=== PATIENT | male | born 1955 | race Caucasian/White ===

== ENCOUNTER 2018-02-27 19:33 | Inpatient (IN) | payer OTHER ==
[2018-02-27 19:58] LABS: AADO2 Arterial 297.4 mmHg (7.0-24.0); ADD MAN DIFF? NO; Allen Test ACCEPTAB; Arterial Base Excess -3.7 mmol/L (-3.0-3); Arterial Blood Gas Oxygen Sat 97.8 mmHG (95.0-98.0); Arterial COHb 0.3 % (0.0-3.0); Arterial Fraction of Oxyhgb 97.3 % (93.0-99.0); Arterial HCO3 19.6 mmol/L (22.0-26.0); Arterial MetHb 0.2 % (0.0-1.5); Arterial Total Hemglobin 9.1 g/dl (12.0-18.0); Arterial pCO2 28.9 mmhg (35-45); MODE TRACH COLLAR; Site Left Radial
[2018-02-27 20:00] LABS: BASOPHILS % 0.2 % (0.0-2.0); EOSINOPHILS # 0.6 10^3/ul (0.0-0.5); EOSINOPHILS % 6.6 % (0.0-7.0); HEMATOCRIT 25.1 % (42.0-52.0); HEMOGLOBIN 8.1 g/dl (14.0-18.0); LYMPHOCYTES # 1.2 10^3/ul (0.8-2.9); LYMPHOCYTES % 13.9 % (15.0-51.0); MEAN CORPUSCULAR HEMOGLOBIN 31.5 pg (29.0-33.0); MEAN CORPUSCULAR HGB CONC 32.3 g/dl (32.0-37.0); MEAN CORPUSCULAR VOLUME 97.7 fl (82.0-101.0); MEAN PLATELET VOLUME 9.7 fl (7.4-10.4); MONOCYTE # 0.6 10^3/ul (0.3-0.9); MONOCYTES % 7.2 % (0.0-11.0); NEUTROPHIL # 6.2 10^3/ul (1.6-7.5); NEUTROPHILS % 71.5 % (39.0-77.0); PLATELET COUNT 655 10^3/UL (140-415); RED BLOOD COUNT 2.57 10^6/ul (4.70-6.10); RED CELL DISTRIBUTION WIDTH 13.1 % (11.5-14.5)
[2018-02-27 20:00] LABS: WHITE BLOOD COUNT 8.7 10^3/ul (4.8-10.8)
[2018-02-27] MEDS: SOD CHLORIDE 0.9% 500 ML IV (20:07)
[2018-02-27 20:21] LABS: ANION GAP 12 (8-16); BLOOD UREA NITROGEN 52 mg/dl (7-20); CALCIUM 8.1 mg/dl (8.4-10.2); CARBON DIOXIDE 21 mmol/L (21-31); CHLORIDE 110 mmol/L (97-110); GLUCOSE 165 mg/dl (70-220); POTASSIUM 4.7 mmol/L (3.5-5.1); SODIUM 138 mmol/L (135-144)
[2018-02-27 20:33] LABS: B-TYPE NATRIURETIC PEPTIDE 4510 PG/ML (0-125); TROPONIN-I < 0.012 ng/ml (0.000-0.120)
[2018-02-28] MEDS: FUROSEMIDE 40 MG INJ IV (01:02)
[2018-02-28] MEDS ORDERED: NACL 0.9% 3 ML SYG IV (01:30)
[2018-02-28] MEDS ORDERED: ONDANSETRON 4 MG INJ IV (01:30)
[2018-02-28] MEDS ORDERED: ACETAMINOPHEN 325 MG TAB PO (01:30)
[2018-02-28 02:11] LABS: D-DIMER 7180.48 ng/ml (<460)
[2018-02-28 02:27] LABS: HEMOGLOBIN A1C 6.4 % (0-5.9)
[2018-02-28 02:31] LABS: OSMOLALITY 305 mOsm/kg (280-295)
[2018-02-28] MEDS ORDERED: DEXTROSE 50% 50 ML SYRINGE IV (03:00)
[2018-02-28] MEDS ORDERED: GLUCOSE GEL 15 GRAM TUBE PO ×2 (03:00)
[2018-02-28] MEDS ORDERED: GLUCOSE GEL 15 GRAM TUBE BUCCAL (03:00)
[2018-02-28] MEDS ORDERED: GLUCAGON 1 MG INJ IM (03:00)
[2018-02-28] MEDS ORDERED: PENDING SANTYL ORDER FOR WOUND CARE XX (03:30)
[2018-02-28 04:33] LABS: ERYTHROCYTE SEDIMENTATION RATE 110 mm/Hr (0-20)
[2018-02-28] MEDS: INSULIN ASPART [NOVOLOG] 3 ML PEN SC ×5 (05:00→20:46)
[2018-02-28 06:27] LABS: IRON 33 ug/dl (35-150)
[2018-02-28 06:33] LABS: LACTIC ACID 0.7 mmol/L (0.5-2.0)
[2018-02-28 06:36] LABS: % IRON SATURATION 16 % SAT (22-52); TOTAL IRON BINDING CAPACITY 208 ug/dl (241-421)
[2018-02-28 06:45] LABS: CHOL/HDL RATIO 3.5 RATIO; HDL CHOLESTEROL 23 mg/dl (30-78); LDL CHOLESTEROL,CALCULATED 35 mg/dl; TRIGLYCERIDES 122 mg/dl (0-149)
[2018-02-28 06:45] LABS: CHOLESTEROL 82 mg/dl (100-200)
[2018-02-28] MEDS ORDERED: INSULIN ASPART [NOVOLOG] 3 ML PEN SC (08:00)
[2018-02-28] MEDS ORDERED: FAMOTIDINE 20 MG TAB PO (09:00)
[2018-02-28] MEDS ORDERED: ASPIRIN 81 MG TAB PO (09:00)
[2018-02-28] MEDS ORDERED: MINOXIDIL 2.5 MG TAB PO (09:00)
[2018-02-28] MEDS ORDERED: CARVEDILOL 12.5 MG PO (09:00)
[2018-02-28] MEDS: traZODone 50 MG TAB PO ×3 (09:35→20:42)
[2018-02-28] MEDS: MINOXIDIL 2.5 MG TAB GTB ×2 (09:35→20:42)
[2018-02-28] MEDS: ASPIRIN 81 MG TAB GTB (09:36)
[2018-02-28] MEDS: FAMOTIDINE 20 MG TAB GTB (09:36)
[2018-02-28] MEDS: NIFEdipine (XL) 60 MG TAB PO (09:36)
[2018-02-28] MEDS: HEPARIN 5,000 UNIT/0.5 ML VIAL SC ×2 (09:38→20:48)
[2018-02-28 12:01] LABS: LACTIC ACID 0.6 mmol/L (0.5-2.0)
[2018-02-28 14:03] LABS: LACTIC ACID 0.6 mmol/L (0.5-2.0)
[2018-02-28 19:10] LABS: TROPONIN-I < 0.012 ng/ml (0.000-0.120)
[2018-02-28] MEDS: ATORVASTATIN 20 MG TAB PO (20:42)
[2018-02-28] MEDS: TAMSULOSIN (SR) 0.4 MG CAP PO (20:42)
[2018-03-01] MEDS: INSULIN ASPART [NOVOLOG] 3 ML PEN SC ×6 (01:00→21:19)
[2018-03-01 01:56] LABS: TROPONIN-I < 0.012 ng/ml (0.000-0.120)
[2018-03-01] MEDS ORDERED: ACCU-CHEK XX (02:00)
[2018-03-01 02:53] LABS: ADD UMIC YES; UR ASCORBIC ACID NEGATIVE (NEGATIVE); UR BACTERIA FEW /HPF (NONE SEEN); UR BILIRUBIN (Dip) NEGATIVE (NEGATIVE); UR BLOOD (Dip) 1+ mg/dL (NEGATIVE); UR CLARITY SLIGHTLY CLOUDY (CLEAR); UR COLOR YELLOW (YELLOW); UR GLUCOSE (Dip) NEGATIVE (NEGATIVE); UR KETONES (Dip) NEGATIVE (NEGATIVE); UR LEUKOCYTE ESTERASE (Dip) TRACE Leu/ul (NEGATIVE); UR NITRITE (Dip) NEGATIVE (NEGATIVE); UR RBC 6 /HPF (0-5); UR SPECIFIC GRAVITY (Dip) 1.013 (1.003-1.030); UR TOTAL PROTEIN (Dip) 1+ mg/dl (NEGATIVE); UR UROBILINOGEN (Dip) NEGATIVE (NEGATIVE); UR WBC 3 /HPF (0-5)
[2018-03-01 03:29] LABS: SODIUM,URINE RANDOM 88 mmol/L (30-90)
[2018-03-01 03:34] LABS: PROTEIN/CREAT RATIO 0.96 RATIO
[2018-03-01 03:37] LABS: OSMOLALITY,URINE 456 mOsm/kg (250-1200)
[2018-03-01 05:18] LABS: AADO2 Arterial 162.9 mmHg (7.0-24.0); Allen Test ACCEPTAB; Arterial Base Excess -1.8 mmol/L (-3.0-3); Arterial Blood Gas Oxygen Sat 96.3 mmHG (95.0-98.0); Arterial COHb 0.3 % (0.0-3.0); Arterial Fraction of Oxyhgb 95.8 % (93.0-99.0); Arterial HCO3 22.2 mmol/L (22.0-26.0); Arterial MetHb 0.2 % (0.0-1.5); Arterial Total Hemglobin 10.5 g/dl (12.0-18.0); Arterial pCO2 34.9 mmhg (35-45); MODE TRACH COLLAR; Site Right Radial
[2018-03-01 05:39] LABS: ADD MAN DIFF? NO
[2018-03-01 05:42] LABS: BASOPHILS % 0.4 % (0.0-2.0); EOSINOPHILS # 0.5 10^3/ul (0.0-0.5); EOSINOPHILS % 6.4 % (0.0-7.0); HEMATOCRIT 26.6 % (42.0-52.0); HEMOGLOBIN 8.5 g/dl (14.0-18.0); LYMPHOCYTES # 1.3 10^3/ul (0.8-2.9); LYMPHOCYTES % 16.3 % (15.0-51.0); MEAN CORPUSCULAR HEMOGLOBIN 31.4 pg (29.0-33.0); MEAN CORPUSCULAR VOLUME 98.2 fl (82.0-101.0); MEAN PLATELET VOLUME 9.5 fl (7.4-10.4); MONOCYTE # 0.6 10^3/ul (0.3-0.9); MONOCYTES % 7.8 % (0.0-11.0); NEUTROPHIL # 5.5 10^3/ul (1.6-7.5); NEUTROPHILS % 68.6 % (39.0-77.0); PLATELET COUNT 676 10^3/UL (140-415); RED BLOOD COUNT 2.71 10^6/ul (4.70-6.10); RED CELL DISTRIBUTION WIDTH 13.2 % (11.5-14.5)
[2018-03-01 06:03] LABS: ALANINE AMINOTRANSFERASE 45 IU/L (13-69); ALBUMIN 2.3 g/dl (3.3-4.9); ALBUMIN/GLOBULIN RATIO 0.62; ALKALINE PHOSPHATASE 91 IU/L (42-121); ANION GAP 13 (8-16); ASPARTATE AMINO TRANSFERASE 44 IU/L (15-46); BILIRUBIN,INDIRECT 0.1 mg/dl (0-1.1); BILIRUBIN,TOTAL 0.1 mg/dl (0.2-1.3); BLOOD UREA NITROGEN 51 mg/dl (7-20); CALCIUM 8.6 mg/dl (8.4-10.2); CARBON DIOXIDE 23 mmol/L (21-31); CHLORIDE 111 mmol/L (97-110); CREATININE 2.59 mg/dl (0.61-1.24); GLUCOSE 157 mg/dl (70-220); MAGNESIUM 2.3 mg/dl (1.7-2.5); SODIUM 142 mmol/L (135-144)
[2018-03-01 06:11] LABS: POTASSIUM 5.1 mmol/L (3.5-5.1)
[2018-03-01 06:15] LABS: TROPONIN-I < 0.012 ng/ml (0.000-0.120)
[2018-03-01] MEDS: MINOXIDIL 2.5 MG TAB GTB ×2 (09:32→20:53)
[2018-03-01] MEDS: NIFEdipine (XL) 60 MG TAB PO (09:32)
[2018-03-01] MEDS: ASPIRIN 81 MG TAB GTB (09:32)
[2018-03-01] MEDS: FAMOTIDINE 20 MG TAB GTB (09:32)
[2018-03-01] MEDS: traZODone 50 MG TAB PO ×3 (09:32→20:52)
[2018-03-01] MEDS: HEPARIN 5,000 UNIT/0.5 ML VIAL SC ×2 (09:36→21:11)
[2018-03-01 13:00] LABS: TROPONIN-I < 0.012 ng/ml (0.000-0.120)
[2018-03-01] MEDS: FUROSEMIDE 40 MG INJ IV (16:42)
[2018-03-01 19:30] LABS: TROPONIN-I < 0.012 ng/ml (0.000-0.120)
[2018-03-01] MEDS: ATORVASTATIN 20 MG TAB PO (20:52)
[2018-03-01] MEDS: TAMSULOSIN (SR) 0.4 MG CAP PO (20:53)
[2018-03-02 01:33] LABS: TROPONIN-I < 0.012 ng/ml (0.000-0.120)
[2018-03-02] MEDS: INSULIN ASPART [NOVOLOG] 3 ML PEN SC ×6 (01:37→20:37)
[2018-03-02 05:19] LABS: AADO2 Arterial 183.1 mmHg (7.0-24.0); Allen Test ACCEPTAB; Arterial Base Excess 0.3 mmol/L (-3.0-3); Arterial Blood Gas Oxygen Sat 90.7 mmHG (95.0-98.0); Arterial COHb 0.3 % (0.0-3.0); Arterial Fraction of Oxyhgb 90.2 % (93.0-99.0); Arterial HCO3 24.7 mmol/L (22.0-26.0); Arterial MetHb 0.3 % (0.0-1.5); Arterial Total Hemglobin 10.7 g/dl (12.0-18.0); MODE TRACH COLLAR; Site Right Radial
[2018-03-02 05:45] LABS: ADD MAN DIFF? NO
[2018-03-02 05:53] LABS: BASOPHILS % 0.1 % (0.0-2.0); EOSINOPHILS # 0.6 10^3/ul (0.0-0.5); EOSINOPHILS % 7.7 % (0.0-7.0); HEMATOCRIT 28.4 % (42.0-52.0); HEMOGLOBIN 8.9 g/dl (14.0-18.0); LYMPHOCYTES # 1.7 10^3/ul (0.8-2.9); MEAN CORPUSCULAR HEMOGLOBIN 30.9 pg (29.0-33.0); MEAN CORPUSCULAR HGB CONC 31.3 g/dl (32.0-37.0); MEAN CORPUSCULAR VOLUME 98.6 fl (82.0-101.0); MEAN PLATELET VOLUME 9.8 fl (7.4-10.4); MONOCYTE # 0.6 10^3/ul (0.3-0.9); MONOCYTES % 7.8 % (0.0-11.0); NEUTROPHILS % 62.6 % (39.0-77.0); PLATELET COUNT 765 10^3/UL (140-415); RED BLOOD COUNT 2.88 10^6/ul (4.70-6.10); RED CELL DISTRIBUTION WIDTH 12.9 % (11.5-14.5)
[2018-03-02 05:53] LABS: WHITE BLOOD COUNT 7.9 10^3/ul (4.8-10.8)
[2018-03-02 06:21] LABS: PHOSPHORUS 5.3 mg/dl (2.5-4.9)
[2018-03-02 06:21] LABS: MAGNESIUM 2.5 mg/dl (1.7-2.5)
[2018-03-02 06:32] LABS: ALANINE AMINOTRANSFERASE 49 IU/L (13-69); ALBUMIN 2.6 g/dl (3.3-4.9); ALBUMIN/GLOBULIN RATIO 0.59; ALKALINE PHOSPHATASE 101 IU/L (42-121); ANION GAP 13 (8-16); ASPARTATE AMINO TRANSFERASE 40 IU/L (15-46); BILIRUBIN,INDIRECT 0.1 mg/dl (0-1.1); BILIRUBIN,TOTAL 0.1 mg/dl (0.2-1.3); BLOOD UREA NITROGEN 55 mg/dl (7-20); CALCIUM 8.8 mg/dl (8.4-10.2); CARBON DIOXIDE 27 mmol/L (21-31); CHLORIDE 109 mmol/L (97-110); CREATININE 2.83 mg/dl (0.61-1.24); GLUCOSE 164 mg/dl (70-220); POTASSIUM 4.7 mmol/L (3.5-5.1); SODIUM 144 mmol/L (135-144)
[2018-03-02] MEDS: FAMOTIDINE 20 MG TAB GTB (08:55)
[2018-03-02] MEDS: traZODone 50 MG TAB PO ×3 (08:55→20:12)
[2018-03-02] MEDS: NIFEdipine (XL) 60 MG TAB PO (08:55)
[2018-03-02] MEDS: ASPIRIN 81 MG TAB GTB (08:56)
[2018-03-02] MEDS: MINOXIDIL 2.5 MG TAB GTB ×2 (08:56→20:12)
[2018-03-02] MEDS: HEPARIN 5,000 UNIT/0.5 ML VIAL SC ×2 (09:46→20:36)
[2018-03-02] MEDS: ATORVASTATIN 20 MG TAB PO (20:12)
[2018-03-02] MEDS: TAMSULOSIN (SR) 0.4 MG CAP PO (20:13)
[2018-03-03] MEDS: INSULIN ASPART [NOVOLOG] 3 ML PEN SC ×6 (01:39→21:59)
[2018-03-03] MEDS: hydrALAzine 20 MG INJ IV (06:39)
[2018-03-03] MEDS: ASPIRIN 81 MG TAB GTB (08:23)
[2018-03-03] MEDS: NIFEdipine (XL) 60 MG TAB PO (08:23)
[2018-03-03] MEDS: FAMOTIDINE 20 MG TAB GTB (08:23)
[2018-03-03] MEDS: traZODone 50 MG TAB PO ×3 (08:23→21:51)
[2018-03-03] MEDS: MINOXIDIL 2.5 MG TAB GTB ×2 (08:24→21:51)
[2018-03-03] MEDS: HEPARIN 5,000 UNIT/0.5 ML VIAL SC ×2 (08:39→21:58)
[2018-03-03] MEDS: ATORVASTATIN 20 MG TAB PO (21:50)
[2018-03-03] MEDS: TAMSULOSIN (SR) 0.4 MG CAP PO (21:51)
[2018-03-03 22:23] LABS: Allen Test ACCEPTAB; Arterial Blood Gas Oxygen Sat 96.9 mmHG (95.0-98.0); Arterial COHb 0.3 % (0.0-3.0); Arterial Fraction of Oxyhgb 96.4 % (93.0-99.0); Arterial HCO3 26.3 mmol/L (22.0-26.0); Arterial MetHb 0.2 % (0.0-1.5); Arterial pCO2 35.2 mmhg (35-45); MODE NASAL CANNULA; Site Right Radial
[2018-03-04] MEDS: INSULIN ASPART [NOVOLOG] 3 ML PEN SC ×6 (01:36→22:07)
[2018-03-04 06:54] LABS: AADO2 Arterial 486.3 mmHg (7.0-24.0); Allen Test ACCEPTAB; Arterial Base Excess 2.9 mmol/L (-3.0-3); Arterial Blood Gas Oxygen Sat 89.7 mmHG (95.0-98.0); Arterial COHb 0.2 % (0.0-3.0); Arterial Fraction of Oxyhgb 89.5 % (93.0-99.0); Arterial HCO3 26.2 mmol/L (22.0-26.0); Arterial MetHb 0 % (0.0-1.5); Arterial Total Hemglobin 10.5 g/dl (12.0-18.0); Arterial pCO2 35.6 mmhg (35-45); MODE MASK - SIMPLE; Site Right Radial
[2018-03-04] MEDS: ASPIRIN 81 MG TAB GTB (09:27)
[2018-03-04] MEDS: FAMOTIDINE 20 MG TAB GTB (09:27)
[2018-03-04] MEDS: traZODone 50 MG TAB PO ×3 (09:28→22:04)
[2018-03-04] MEDS: NIFEdipine (XL) 60 MG TAB PO (09:28)
[2018-03-04] MEDS: MINOXIDIL 2.5 MG TAB GTB ×2 (09:28→22:04)
[2018-03-04] MEDS: ACETAMINOPHEN 325 MG TAB GTB (09:30)
[2018-03-04] MEDS: HEPARIN 5,000 UNIT/0.5 ML VIAL SC ×2 (09:39→22:07)
[2018-03-04] MEDS ORDERED: LIDOCAINE 100 MG SYRINGE (10:41)
[2018-03-04] MEDS ORDERED: LIDOCAINE 1% (MDV) 20 ML INJ (10:41)
[2018-03-04 11:32] LABS: ADD MAN DIFF? NO
[2018-03-04 11:35] LABS: BASOPHILS % 0.3 % (0.0-2.0); EOSINOPHILS # 0.2 10^3/ul (0.0-0.5); HEMOGLOBIN 8.7 g/dl (14.0-18.0); LYMPHOCYTES # 1.7 10^3/ul (0.8-2.9); LYMPHOCYTES % 17.4 % (15.0-51.0); MEAN CORPUSCULAR HGB CONC 31.1 g/dl (32.0-37.0); MEAN CORPUSCULAR VOLUME 99.6 fl (82.0-101.0); MEAN PLATELET VOLUME 9.4 fl (7.4-10.4); MONOCYTE # 0.8 10^3/ul (0.3-0.9); MONOCYTES % 7.8 % (0.0-11.0); NEUTROPHIL # 7.2 10^3/ul (1.6-7.5); NEUTROPHILS % 71.6 % (39.0-77.0); PLATELET COUNT 616 10^3/UL (140-415); RED BLOOD COUNT 2.81 10^6/ul (4.70-6.10); RED CELL DISTRIBUTION WIDTH 13.2 % (11.5-14.5)
[2018-03-04 11:52] LABS: ANION GAP 11 (8-16); BLOOD UREA NITROGEN 64 mg/dl (7-20); CALCIUM 8.7 mg/dl (8.4-10.2); CARBON DIOXIDE 28 mmol/L (21-31); CHLORIDE 114 mmol/L (97-110); CREATININE 2.96 mg/dl (0.61-1.24); GLUCOSE 112 mg/dl (70-220); POTASSIUM 5.4 mmol/L (3.5-5.1); SODIUM 148 mmol/L (135-144)
[2018-03-04 12:52] LABS: PROCALCITONIN 0.29 ng/mL (<0.10)
[2018-03-04] MEDS: LIDOCAINE 1% (MDV) 20 ML INJ SC (16:46)
[2018-03-04] MEDS: ATORVASTATIN 20 MG TAB PO (22:02)
[2018-03-04] MEDS: TERAZOSIN 1 MG CAP GTB (22:03)
[2018-03-05] MEDS: INSULIN ASPART [NOVOLOG] 3 ML PEN SC ×6 (00:46→21:18)
[2018-03-05 05:23] LABS: ADD MAN DIFF? NO
[2018-03-05 05:27] LABS: BASOPHILS % 0.3 % (0.0-2.0); EOSINOPHILS # 0.3 10^3/ul (0.0-0.5); EOSINOPHILS % 2.8 % (0.0-7.0); HEMATOCRIT 28.8 % (42.0-52.0); LYMPHOCYTES # 1.3 10^3/ul (0.8-2.9); MEAN CORPUSCULAR HEMOGLOBIN 31.4 pg (29.0-33.0); MEAN CORPUSCULAR HGB CONC 31.3 g/dl (32.0-37.0); MEAN CORPUSCULAR VOLUME 100.3 fl (82.0-101.0); MEAN PLATELET VOLUME 8.8 fl (7.4-10.4); MONOCYTE # 0.7 10^3/ul (0.3-0.9); MONOCYTES % 6.5 % (0.0-11.0); NEUTROPHIL # 8.6 10^3/ul (1.6-7.5); NEUTROPHILS % 77.9 % (39.0-77.0); PLATELET COUNT 615 10^3/UL (140-415); RED BLOOD COUNT 2.87 10^6/ul (4.70-6.10); RED CELL DISTRIBUTION WIDTH 13.2 % (11.5-14.5)
[2018-03-05 05:53] LABS: ANION GAP 11 (8-16); BLOOD UREA NITROGEN 70 mg/dl (7-20); CALCIUM 8.8 mg/dl (8.4-10.2); CARBON DIOXIDE 28 mmol/L (21-31); CHLORIDE 114 mmol/L (97-110); CREATININE 3.29 mg/dl (0.61-1.24); GLUCOSE 193 mg/dl (70-220); MAGNESIUM 3.1 mg/dl (1.7-2.5); PHOSPHORUS 5.5 mg/dl (2.5-4.9); POTASSIUM 5.2 mmol/L (3.5-5.1); SODIUM 148 mmol/L (135-144)
[2018-03-05] MEDS: NIFEdipine (XL) 60 MG TAB PO (08:13)
[2018-03-05] MEDS: FAMOTIDINE 20 MG TAB GTB (08:13)
[2018-03-05] MEDS: ASPIRIN 81 MG TAB GTB (08:13)
[2018-03-05] MEDS: traZODone 50 MG TAB PO ×3 (08:14→21:16)
[2018-03-05] MEDS: MINOXIDIL 2.5 MG TAB GTB ×2 (08:14→21:00)
[2018-03-05] MEDS: HEPARIN 5,000 UNIT/0.5 ML VIAL SC ×2 (08:19→21:19)
[2018-03-05] MEDS ORDERED: NA POLYST SULFON 15 GM/60 ML BTL PO (09:30)
[2018-03-05] MEDS ORDERED: VANCOMYCIN IV PER PHARMACY XX (09:30)
[2018-03-05] MEDS: DEXTROSE 5% 1,000 ML IV ×2 (09:34→22:50)
[2018-03-05] MEDS: NA POLYST SULFON 15 GM/60 ML BTL PO (10:14)
[2018-03-05] MEDS: VANCOMYCIN 1.5 GM in SOD CHLORIDE 0.9% 250 ML IVPB (12:58)
[2018-03-05] MEDS ORDERED: MIDAZOLAM 1 MG/ML 2 ML INJ (16:32)
[2018-03-05] MEDS ORDERED: MIDAZOLAM (DRIP) 50 mg/50 mL 50 ML IV (17:00)
[2018-03-05] MEDS ORDERED: LIDOCAINE 1% (MDV) 20 ML INJ (17:03)
[2018-03-05] MEDS: MIDAZOLAM 1 MG/ML 2 ML INJ IV ×3 (17:27→17:30)
[2018-03-05] MEDS: MIDAZOLAM 1 MG/ML 5 ML INJ IV (17:28)
[2018-03-05] MEDS: LIDOCAINE 1% (MDV) 20 ML INJ SC (17:30)
[2018-03-05 18:13] LABS: AADO2 Arterial 380.9 mmHg (7.0-24.0); Allen Test ACCEPTAB; Arterial Base Excess -1.3 mmol/L (-3.0-3); Arterial Blood Gas Oxygen Sat 99.4 mmHG (95.0-98.0); Arterial COHb 0.3 % (0.0-3.0); Arterial Fraction of Oxyhgb 98.9 % (93.0-99.0); Arterial HCO3 23.6 mmol/L (22.0-26.0); Arterial MetHb 0.2 % (0.0-1.5); Arterial Total Hemglobin 8.8 g/dl (12.0-18.0); Arterial pCO2 40.2 mmhg (35-45); Blood Gas Low PEEP Setting 0 cmH2O; MODE VENT - AC; Site Right Radial
[2018-03-05] MEDS: FENTAnyl (DRIP) 1000 mcg/100mL 100 ML IV (18:24)
[2018-03-05] MEDS: MIDAZOLAM (DRIP) 50 mg/50 mL 50 ML IV (18:26)
[2018-03-05 20:49] LABS: LACTIC ACID 1.3 mmol/L (0.5-2.0)
[2018-03-05] MEDS: TERAZOSIN 1 MG CAP GTB (21:00)
[2018-03-05] MEDS: ATORVASTATIN 20 MG TAB PO (21:16)
[2018-03-06] MEDS: MIDAZOLAM (DRIP) 50 mg/50 mL 50 ML IV ×2 (00:40→17:31)
[2018-03-06] MEDS: INSULIN ASPART [NOVOLOG] 3 ML PEN SC ×5 (01:54→20:08)
[2018-03-06 04:59] LABS: ADD MAN DIFF? NO
[2018-03-06 05:11] LABS: BASOPHILS % 0.2 % (0.0-2.0); EOSINOPHILS # 0.2 10^3/ul (0.0-0.5); EOSINOPHILS % 1.6 % (0.0-7.0); HEMATOCRIT 26.2 % (42.0-52.0); HEMOGLOBIN 8.1 g/dl (14.0-18.0); LYMPHOCYTES # 1.5 10^3/ul (0.8-2.9); LYMPHOCYTES % 13.9 % (15.0-51.0); MEAN CORPUSCULAR HGB CONC 30.9 g/dl (32.0-37.0); MEAN CORPUSCULAR VOLUME 100.4 fl (82.0-101.0); MEAN PLATELET VOLUME 9.4 fl (7.4-10.4); MONOCYTE # 0.8 10^3/ul (0.3-0.9); MONOCYTES % 6.9 % (0.0-11.0); NEUTROPHIL # 8.5 10^3/ul (1.6-7.5); NEUTROPHILS % 76.9 % (39.0-77.0); PLATELET COUNT 519 10^3/UL (140-415); RED BLOOD COUNT 2.61 10^6/ul (4.70-6.10); RED CELL DISTRIBUTION WIDTH 13.3 % (11.5-14.5)
[2018-03-06 05:11] LABS: WHITE BLOOD COUNT 11.1 10^3/ul (4.8-10.8)
[2018-03-06 05:49] LABS: PHOSPHORUS 5.5 mg/dl (2.5-4.9)
[2018-03-06 05:49] LABS: MAGNESIUM 2.8 mg/dl (1.7-2.5)
[2018-03-06 05:55] LABS: ANION GAP 10 (8-16); BLOOD UREA NITROGEN 65 mg/dl (7-20); CARBON DIOXIDE 28 mmol/L (21-31); CHLORIDE 114 mmol/L (97-110); CREATININE 2.89 mg/dl (0.61-1.24); GLUCOSE 205 mg/dl (70-220); POTASSIUM 4.7 mmol/L (3.5-5.1); SODIUM 147 mmol/L (135-144)
[2018-03-06] MEDS: NIFEdipine 10 MG CAP GTB ×3 (09:00→21:00)
[2018-03-06 09:43] LABS: AADO2 Arterial 158.8 mmHg (7.0-24.0); Allen Test ACCEPTAB; Arterial Base Excess 0.3 mmol/L (-3.0-3); Arterial Blood Gas Oxygen Sat 95.8 mmHG (95.0-98.0); Arterial COHb 0.1 % (0.0-3.0); Arterial Fraction of Oxyhgb 95.4 % (93.0-99.0); Arterial HCO3 24.6 mmol/L (22.0-26.0); Arterial MetHb 0.3 % (0.0-1.5); Arterial Total Hemglobin 8.9 g/dl (12.0-18.0); Arterial pCO2 38.4 mmhg (35-45); MODE VENT - AC; Site Right Radial
[2018-03-06] MEDS: FAMOTIDINE 20 MG TAB GTB (09:55)
[2018-03-06] MEDS: DEXTROSE 5% 1,000 ML IV ×2 (09:55→23:32)
[2018-03-06] MEDS: traZODone 50 MG TAB PO ×3 (09:55→21:36)
[2018-03-06] MEDS: HEPARIN 5,000 UNIT/0.5 ML VIAL SC ×2 (10:01→21:38)
[2018-03-06] MEDS: ASPIRIN 81 MG TAB GTB (10:11)
[2018-03-06] MEDS: MINOXIDIL 2.5 MG TAB GTB ×2 (10:11→21:00)
[2018-03-06] MEDS ORDERED: MEROPENEM 1 GM/50ML(PMX) 50 ML IVPB (11:00)
[2018-03-06] MEDS: FENTAnyl (DRIP) 1000 mcg/100mL 100 ML IV (11:20)
[2018-03-06] MEDS: TERAZOSIN 1 MG CAP GTB (21:00)
[2018-03-06] MEDS: ATORVASTATIN 20 MG TAB PO (21:36)
[2018-03-07] MEDS: ACCU-CHEK XX (01:48)
[2018-03-07] MEDS ORDERED: ACCU-CHEK XX (02:00)
[2018-03-07] MEDS: MIDAZOLAM (DRIP) 50 mg/50 mL 50 ML IV ×2 (03:39→13:52)
[2018-03-07 05:14] LABS: ADD MAN DIFF? NO
[2018-03-07 05:20] LABS: BASOPHILS % 0.2 % (0.0-2.0); EOSINOPHILS # 0.5 10^3/ul (0.0-0.5); EOSINOPHILS % 5.7 % (0.0-7.0); HEMATOCRIT 26.1 % (42.0-52.0); HEMOGLOBIN 8.2 g/dl (14.0-18.0); LYMPHOCYTES # 1.9 10^3/ul (0.8-2.9); MEAN CORPUSCULAR HEMOGLOBIN 31.5 pg (29.0-33.0); MEAN CORPUSCULAR HGB CONC 31.4 g/dl (32.0-37.0); MEAN CORPUSCULAR VOLUME 100.4 fl (82.0-101.0); MEAN PLATELET VOLUME 9.4 fl (7.4-10.4); MONOCYTE # 0.6 10^3/ul (0.3-0.9); MONOCYTES % 6.3 % (0.0-11.0); NEUTROPHILS % 66.4 % (39.0-77.0); PLATELET COUNT 464 10^3/UL (140-415); RED CELL DISTRIBUTION WIDTH 13.3 % (11.5-14.5)
[2018-03-07 05:20] LABS: WHITE BLOOD COUNT 9.1 10^3/ul (4.8-10.8)
[2018-03-07 05:54] LABS: ANION GAP 10 (8-16); BLOOD UREA NITROGEN 62 mg/dl (7-20); CALCIUM 7.7 mg/dl (8.4-10.2); CARBON DIOXIDE 27 mmol/L (21-31); CHLORIDE 108 mmol/L (97-110); CREATININE 2.74 mg/dl (0.61-1.24); GLUCOSE 182 mg/dl (70-220); POTASSIUM 4.4 mmol/L (3.5-5.1); SODIUM 141 mmol/L (135-144)
[2018-03-07] MEDS: FAMOTIDINE 20 MG TAB GTB (08:09)
[2018-03-07] MEDS: ASPIRIN 81 MG TAB GTB (08:09)
[2018-03-07] MEDS: HEPARIN 5,000 UNIT/0.5 ML VIAL SC ×2 (08:11→20:23)
[2018-03-07] MEDS: INSULIN ASPART [NOVOLOG] 3 ML PEN SC ×4 (08:12→20:27)
[2018-03-07] MEDS: traZODone 50 MG TAB PO ×3 (08:19→20:21)
[2018-03-07] MEDS: INSULIN GLARGINE [LANTus] (100 UNITS/ML) SYG SC (08:29)
[2018-03-07] MEDS: DEXTROSE 5% 1,000 ML IV (08:51)
[2018-03-07] MEDS: MINOXIDIL 2.5 MG TAB GTB ×2 (09:00→23:00)
[2018-03-07] MEDS: NIFEdipine 10 MG CAP GTB ×3 (09:00→23:00)
[2018-03-07] MEDS: SOD CHLORIDE 0.45% 1,000 ML IV (09:44)
[2018-03-07] MEDS: MEROPENEM 1 GM/50ML(PMX) 50 ML IVPB ×3 (09:45→20:21)
[2018-03-07] MEDS: FENTAnyl (DRIP) 1000 mcg/100mL 100 ML IV (10:32)
[2018-03-07] MEDS: ATORVASTATIN 20 MG TAB PO (20:21)
[2018-03-07] MEDS: TERAZOSIN 1 MG CAP GTB (22:20)
[2018-03-08] MEDS: SOD CHLORIDE 0.45% 1,000 ML IV ×2 (00:40→14:24)
[2018-03-08] MEDS: ACCU-CHEK XX (00:43)
[2018-03-08 04:58] LABS: ADD MAN DIFF? NO
[2018-03-08 05:05] LABS: BASOPHILS % 0.3 % (0.0-2.0); EOSINOPHILS # 0.6 10^3/ul (0.0-0.5); EOSINOPHILS % 7.1 % (0.0-7.0); HEMATOCRIT 28.6 % (42.0-52.0); HEMOGLOBIN 8.9 g/dl (14.0-18.0); LYMPHOCYTES # 1.5 10^3/ul (0.8-2.9); LYMPHOCYTES % 18.8 % (15.0-51.0); MEAN CORPUSCULAR HGB CONC 31.1 g/dl (32.0-37.0); MEAN CORPUSCULAR VOLUME 99.7 fl (82.0-101.0); MEAN PLATELET VOLUME 9.5 fl (7.4-10.4); MONOCYTE # 0.5 10^3/ul (0.3-0.9); MONOCYTES % 5.9 % (0.0-11.0); NEUTROPHIL # 5.3 10^3/ul (1.6-7.5); NEUTROPHILS % 67.5 % (39.0-77.0); PLATELET COUNT 498 10^3/UL (140-415); RED BLOOD COUNT 2.87 10^6/ul (4.70-6.10); RED CELL DISTRIBUTION WIDTH 12.8 % (11.5-14.5)
[2018-03-08 05:05] LABS: WHITE BLOOD COUNT 7.8 10^3/ul (4.8-10.8)
[2018-03-08] MEDS: MIDAZOLAM (DRIP) 50 mg/50 mL 50 ML IV ×2 (05:16→05:59)
[2018-03-08 05:34] LABS: AADO2 Arterial 102.1 mmHg (7.0-24.0); Allen Test ACCEPTAB; Arterial Base Excess -0.9 mmol/L (-3.0-3); Arterial Blood Gas Oxygen Sat 94.5 mmHG (95.0-98.0); Arterial COHb 0.4 % (0.0-3.0); Arterial HCO3 23.1 mmol/L (22.0-26.0); Arterial MetHb 0.1 % (0.0-1.5); Arterial Total Hemglobin 8.9 g/dl (12.0-18.0); Arterial pCO2 35.1 mmhg (35-45); Blood Gas Low PEEP Setting 0 cmH2O; MODE VENT - AC; Site Right Radial
[2018-03-08 05:42] LABS: ANION GAP 12 (8-16); BLOOD UREA NITROGEN 58 mg/dl (7-20); CALCIUM 8.2 mg/dl (8.4-10.2); CARBON DIOXIDE 28 mmol/L (21-31); CHLORIDE 104 mmol/L (97-110); CREATININE 2.63 mg/dl (0.61-1.24); GLUCOSE 117 mg/dl (70-220); POTASSIUM 5.1 mmol/L (3.5-5.1); SODIUM 139 mmol/L (135-144)
[2018-03-08] MEDS: INSULIN ASPART [NOVOLOG] 3 ML PEN SC ×4 (07:35→21:00)
[2018-03-08] MEDS: INSULIN GLARGINE [LANTus] (100 UNITS/ML) SYG SC (08:01)
[2018-03-08] MEDS: HEPARIN 5,000 UNIT/0.5 ML VIAL SC ×2 (08:01→21:41)
[2018-03-08] MEDS: ASPIRIN 81 MG TAB GTB (08:10)
[2018-03-08] MEDS: FAMOTIDINE 20 MG TAB GTB (08:11)
[2018-03-08] MEDS: MINOXIDIL 2.5 MG TAB GTB ×2 (08:16→21:30)
[2018-03-08] MEDS: NIFEdipine 10 MG CAP GTB ×3 (08:17→21:29)
[2018-03-08] MEDS: traZODone 50 MG TAB PO ×3 (08:23→21:30)
[2018-03-08] MEDS: MEROPENEM 1 GM/50ML(PMX) 50 ML IVPB ×2 (08:23→21:28)
[2018-03-08] MEDS: ATORVASTATIN 20 MG TAB PO (21:29)
[2018-03-08] MEDS: TERAZOSIN 1 MG CAP GTB (21:43)
[2018-03-09] MEDS: SOD CHLORIDE 0.45% 1,000 ML IV ×2 (02:00→17:44)
[2018-03-09] MEDS: ACCU-CHEK XX (02:00)
[2018-03-09 05:31] LABS: ADD MAN DIFF? NO
[2018-03-09 05:55] LABS: WHITE BLOOD COUNT 5.8 10^3/ul (4.8-10.8)
[2018-03-09 05:55] LABS: BASOPHILS % 0.3 % (0.0-2.0); EOSINOPHILS # 0.3 10^3/ul (0.0-0.5); EOSINOPHILS % 5.1 % (0.0-7.0); HEMATOCRIT 25.5 % (42.0-52.0); HEMOGLOBIN 8.2 g/dl (14.0-18.0); LYMPHOCYTES % 17.8 % (15.0-51.0); MEAN CORPUSCULAR HEMOGLOBIN 31.3 pg (29.0-33.0); MEAN CORPUSCULAR HGB CONC 32.2 g/dl (32.0-37.0); MEAN CORPUSCULAR VOLUME 97.3 fl (82.0-101.0); MEAN PLATELET VOLUME 10.1 fl (7.4-10.4); MONOCYTE # 0.4 10^3/ul (0.3-0.9); MONOCYTES % 7.2 % (0.0-11.0); NEUTROPHILS % 69.1 % (39.0-77.0); PLATELET COUNT 389 10^3/UL (140-415); RED BLOOD COUNT 2.62 10^6/ul (4.70-6.10); RED CELL DISTRIBUTION WIDTH 12.9 % (11.5-14.5)
[2018-03-09 06:41] LABS: ANION GAP 11 (8-16); BLOOD UREA NITROGEN 54 mg/dl (7-20); CARBON DIOXIDE 25 mmol/L (21-31); CHLORIDE 107 mmol/L (97-110); CREATININE 2.48 mg/dl (0.61-1.24); GLUCOSE 153 mg/dl (70-220); POTASSIUM 5.3 mmol/L (3.5-5.1); SODIUM 138 mmol/L (135-144)
[2018-03-09] MEDS: INSULIN ASPART [NOVOLOG] 3 ML PEN SC ×4 (08:40→20:37)
[2018-03-09] MEDS: HEPARIN 5,000 UNIT/0.5 ML VIAL SC ×2 (08:41→21:06)
[2018-03-09] MEDS: INSULIN GLARGINE [LANTus] (100 UNITS/ML) SYG SC (08:41)
[2018-03-09] MEDS: traZODone 50 MG TAB PO ×3 (08:41→20:48)
[2018-03-09] MEDS: FAMOTIDINE 20 MG TAB GTB (08:41)
[2018-03-09] MEDS: MINOXIDIL 2.5 MG TAB GTB ×2 (08:42→20:48)
[2018-03-09] MEDS: ASPIRIN 81 MG TAB GTB (08:42)
[2018-03-09] MEDS: NIFEdipine 10 MG CAP GTB ×3 (08:43→20:47)
[2018-03-09] MEDS: MEROPENEM 1 GM/50ML(PMX) 50 ML IVPB (09:27)
[2018-03-09] MEDS: TERAZOSIN 1 MG CAP GTB (20:48)
[2018-03-09] MEDS: ATORVASTATIN 20 MG TAB PO (20:49)
[2018-03-09] MEDS ORDERED: CLINDAMYCIN 1% 30 GM GEL TOP (23:00)
[2018-03-10] MEDS: ACCU-CHEK XX (01:47)
[2018-03-10] MEDS: INSULIN ASPART [NOVOLOG] 3 ML PEN SC ×6 (01:53→21:00)
[2018-03-10] MEDS ORDERED: LORAZEPAM 2 MG INJ (02:01)
[2018-03-10] MEDS: LORAZEPAM 2 MG INJ IV (03:03)
[2018-03-10] MEDS: MIDAZOLAM (DRIP) 50 mg/50 mL 50 ML IV ×2 (03:03→13:21)
[2018-03-10 05:22] LABS: ADD MAN DIFF? NO
[2018-03-10 05:31] LABS: WHITE BLOOD COUNT 7.7 10^3/ul (4.8-10.8)
[2018-03-10 05:31] LABS: BASOPHILS % 0.3 % (0.0-2.0); EOSINOPHILS # 0.4 10^3/ul (0.0-0.5); EOSINOPHILS % 4.7 % (0.0-7.0); HEMOGLOBIN 8.5 g/dl (14.0-18.0); LYMPHOCYTES # 1.3 10^3/ul (0.8-2.9); LYMPHOCYTES % 17.1 % (15.0-51.0); MEAN CORPUSCULAR HEMOGLOBIN 31.4 pg (29.0-33.0); MEAN CORPUSCULAR HGB CONC 32.7 g/dl (32.0-37.0); MEAN CORPUSCULAR VOLUME 95.9 fl (82.0-101.0); MEAN PLATELET VOLUME 9.6 fl (7.4-10.4); MONOCYTE # 0.5 10^3/ul (0.3-0.9); MONOCYTES % 6.9 % (0.0-11.0); NEUTROPHIL # 5.4 10^3/ul (1.6-7.5); PLATELET COUNT 387 10^3/UL (140-415); RED BLOOD COUNT 2.71 10^6/ul (4.70-6.10); RED CELL DISTRIBUTION WIDTH 12.6 % (11.5-14.5)
[2018-03-10] MEDS: SOD CHLORIDE 0.45% 1,000 ML IV ×2 (05:53→17:49)
[2018-03-10 06:35] LABS: ANION GAP 10 (8-16); BLOOD UREA NITROGEN 51 mg/dl (7-20); CALCIUM 8.2 mg/dl (8.4-10.2); CARBON DIOXIDE 25 mmol/L (21-31); CHLORIDE 111 mmol/L (97-110); CREATININE 2.42 mg/dl (0.61-1.24); GLUCOSE 122 mg/dl (70-220); POTASSIUM 5.5 mmol/L (3.5-5.1); SODIUM 140 mmol/L (135-144)
[2018-03-10] MEDS: INSULIN GLARGINE [LANTus] (100 UNITS/ML) SYG SC (08:26)
[2018-03-10] MEDS: HEPARIN 5,000 UNIT/0.5 ML VIAL SC ×2 (08:26→21:15)
[2018-03-10] MEDS: ASPIRIN 81 MG TAB GTB (08:27)
[2018-03-10] MEDS: traZODone 50 MG TAB PO ×3 (08:27→21:12)
[2018-03-10] MEDS: NIFEdipine 10 MG CAP GTB ×3 (08:28→21:00)
[2018-03-10] MEDS: FAMOTIDINE 20 MG TAB GTB (08:28)
[2018-03-10] MEDS: MINOXIDIL 2.5 MG TAB GTB ×2 (08:34→21:00)
[2018-03-10] MEDS: TERAZOSIN 1 MG CAP GTB (21:12)
[2018-03-10] MEDS: ATORVASTATIN 20 MG TAB PO (21:12)
[2018-03-11] MEDS: INSULIN ASPART [NOVOLOG] 3 ML PEN SC ×6 (01:00→21:00)
[2018-03-11] MEDS: ACCU-CHEK XX (01:27)
[2018-03-11] MEDS: LORAZEPAM 2 MG INJ IV (02:19)
[2018-03-11] MEDS: MIDAZOLAM (DRIP) 50 mg/50 mL 50 ML IV ×2 (03:28→14:02)
[2018-03-11] MEDS: FENTAnyl (DRIP) 1000 mcg/100mL 100 ML IV ×2 (05:47→22:08)
[2018-03-11 06:23] LABS: ANION GAP 10 (8-16); BLOOD UREA NITROGEN 45 mg/dl (7-20); CALCIUM 8.5 mg/dl (8.4-10.2); CARBON DIOXIDE 22 mmol/L (21-31); CHLORIDE 114 mmol/L (97-110); CREATININE 2.51 mg/dl (0.61-1.24); GLUCOSE 106 mg/dl (70-220); POTASSIUM 5.2 mmol/L (3.5-5.1); SODIUM 141 mmol/L (135-144)
[2018-03-11] MEDS: SOD CHLORIDE 0.45% 1,000 ML IV ×2 (07:24→22:47)
[2018-03-11] MEDS: FAMOTIDINE 20 MG TAB GTB (08:35)
[2018-03-11] MEDS: HEPARIN 5,000 UNIT/0.5 ML VIAL SC ×2 (08:36→21:59)
[2018-03-11] MEDS: NIFEdipine 10 MG CAP GTB ×3 (08:36→21:00)
[2018-03-11] MEDS: MINOXIDIL 2.5 MG TAB GTB ×2 (08:37→21:00)
[2018-03-11] MEDS: traZODone 50 MG TAB PO ×3 (08:44→21:58)
[2018-03-11] MEDS: INSULIN GLARGINE [LANTus] (100 UNITS/ML) SYG SC (08:44)
[2018-03-11] MEDS: ASPIRIN 81 MG TAB GTB (09:00)
[2018-03-11] MEDS: TERAZOSIN 1 MG CAP GTB (21:00)
[2018-03-11] MEDS: ATORVASTATIN 20 MG TAB PO ×3 (21:58→22:02)
[2018-03-12] MEDS: INSULIN ASPART [NOVOLOG] 3 ML PEN SC ×6 (01:00→21:00)
[2018-03-12] MEDS: ACCU-CHEK XX (02:30)
[2018-03-12] MEDS: INSULIN GLARGINE [LANTus] (100 UNITS/ML) SYG SC (08:00)
[2018-03-12] MEDS: NIFEdipine 10 MG CAP GTB ×3 (08:03→22:00)
[2018-03-12] MEDS: FAMOTIDINE 20 MG TAB GTB (08:03)
[2018-03-12] MEDS: MINOXIDIL 2.5 MG TAB GTB ×2 (08:05→22:00)
[2018-03-12] MEDS: traZODone 50 MG TAB PO ×3 (08:05→21:56)
[2018-03-12] MEDS: DEXTROSE 50% 50 ML SYRINGE IV (08:11)
[2018-03-12] MEDS: HEPARIN 5,000 UNIT/0.5 ML VIAL SC (08:20)
[2018-03-12] MEDS: ASPIRIN 81 MG TAB GTB (08:20)
[2018-03-12] MEDS: HEPARIN SODIUM 5,000 UNIT/ML VIAL SC ×2 (10:00→21:58)
[2018-03-12 10:47] LABS: ADD MAN DIFF? NO
[2018-03-12 10:49] LABS: WHITE BLOOD COUNT 10.8 10^3/ul (4.8-10.8)
[2018-03-12 10:49] LABS: BASOPHILS % 0.2 % (0.0-2.0); EOSINOPHILS # 0.7 10^3/ul (0.0-0.5); EOSINOPHILS % 6.7 % (0.0-7.0); HEMATOCRIT 28.7 % (42.0-52.0); HEMOGLOBIN 9.2 g/dl (14.0-18.0); LYMPHOCYTES # 2.4 10^3/ul (0.8-2.9); LYMPHOCYTES % 22.6 % (15.0-51.0); MEAN CORPUSCULAR HEMOGLOBIN 31.4 pg (29.0-33.0); MEAN CORPUSCULAR HGB CONC 32.1 g/dl (32.0-37.0); MEAN PLATELET VOLUME 9.2 fl (7.4-10.4); MONOCYTES % 9.1 % (0.0-11.0); NEUTROPHIL # 6.6 10^3/ul (1.6-7.5); NEUTROPHILS % 60.9 % (39.0-77.0); PLATELET COUNT 372 10^3/UL (140-415); RED BLOOD COUNT 2.93 10^6/ul (4.70-6.10); RED CELL DISTRIBUTION WIDTH 12.8 % (11.5-14.5)
[2018-03-12 11:16] LABS: ALANINE AMINOTRANSFERASE 33 IU/L (13-69); ALBUMIN 2.6 g/dl (3.3-4.9); ALBUMIN/GLOBULIN RATIO 0.61; ALKALINE PHOSPHATASE 87 IU/L (42-121); ANION GAP 6 (5-13); ASPARTATE AMINO TRANSFERASE 29 IU/L (15-46); BILIRUBIN,INDIRECT 0.2 mg/dl (0-1.1); BILIRUBIN,TOTAL 0.2 mg/dl (0.2-1.3); BLOOD UREA NITROGEN 44 mg/dl (7-20); CALCIUM 8.5 mg/dl (8.4-10.2); CARBON DIOXIDE 22 mmol/L (21-31); CHLORIDE 110 mmol/L (97-110); GLUCOSE 120 mg/dl (70-220); MAGNESIUM 2.5 mg/dl (1.7-2.5); PHOSPHORUS 5.4 mg/dl (2.5-4.9); POTASSIUM 5.2 mmol/L (3.5-5.1); SODIUM 138 mmol/L (135-144); TOTAL PROTEIN 6.8 g/dl (6.1-8.1)
[2018-03-12] MEDS: SOD CHLORIDE 0.45% 1,000 ML IV (11:51)
[2018-03-12] MEDS: MIDAZOLAM (DRIP) 50 mg/50 mL 50 ML IV ×2 (12:16→22:19)
[2018-03-12] MEDS: FENTAnyl (DRIP) 1000 mcg/100mL 100 ML IV (14:07)
[2018-03-12] MEDS ORDERED: HEPARIN 5,000 UNIT/0.5 ML VIAL (21:49)
[2018-03-12] MEDS: TERAZOSIN 1 MG CAP GTB (21:59)
[2018-03-13] MEDS: INSULIN ASPART [NOVOLOG] 3 ML PEN SC ×6 (01:00→20:58)
[2018-03-13] MEDS: ACCU-CHEK XX (02:00)
[2018-03-13] MEDS: SOD CHLORIDE 0.45% 1,000 ML IV ×3 (05:15→21:23)
[2018-03-13] MEDS: FENTAnyl (DRIP) 1000 mcg/100mL 100 ML IV (05:19)
[2018-03-13] MEDS: INSULIN GLARGINE [LANTus] (100 UNITS/ML) SYG SC (08:00)
[2018-03-13] MEDS: traZODone 50 MG TAB PO ×3 (08:25→21:04)
[2018-03-13] MEDS: FAMOTIDINE 20 MG TAB GTB (08:25)
[2018-03-13] MEDS: NIFEdipine 10 MG CAP GTB ×3 (08:33→21:03)
[2018-03-13] MEDS: MINOXIDIL 2.5 MG TAB GTB ×2 (08:33→21:04)
[2018-03-13] MEDS: ASPIRIN 81 MG TAB GTB (08:33)
[2018-03-13] MEDS: HEPARIN SODIUM 5,000 UNIT/ML VIAL SC ×2 (08:33→21:09)
[2018-03-13] MEDS: MIDAZOLAM (DRIP) 50 mg/50 mL 50 ML IV ×2 (13:59→18:58)
[2018-03-13] MEDS: DEXTROSE 50% 50 ML SYRINGE IV (17:24)
[2018-03-13] MEDS ORDERED: LIDOCAINE 1%/EPI 30 ML INJ (18:45)
[2018-03-13] MEDS: LIDOCAINE 1%/EPI 30 ML INJ (19:49)
[2018-03-13] MEDS ORDERED: HEPARIN 5,000 UNIT/0.5 ML VIAL (20:25)
[2018-03-13] MEDS ORDERED: FENTAnyl 50 MCG/ML VIAL IV ×3 (20:30)
[2018-03-13] MEDS ORDERED: hydrALAzine 20 MG INJ IV (20:30)
[2018-03-13] MEDS ORDERED: LABETALOL HCL 20MG INJ IV (20:30)
[2018-03-13] MEDS ORDERED: MIDAZOLAM 1 MG/ML 2 ML INJ IV (20:30)
[2018-03-13] MEDS ORDERED: MEPERIDINE 25 MG INJ IV (20:30)
[2018-03-13] MEDS ORDERED: DIPHENHYDRAMINE 50 MG INJ IV (20:30)
[2018-03-13] MEDS ORDERED: EPHEDrine SULFATE 50 MG/5 ML SYG IV (20:30)
[2018-03-13] MEDS ORDERED: HYDROmorphONE 0.5 MG/0.5 ML SYG IV ×3 (20:30)
[2018-03-13] MEDS: TERAZOSIN 1 MG CAP GTB (21:03)
[2018-03-13] MEDS: ATORVASTATIN 20 MG TAB PO (21:03)
[2018-03-14] MEDS: INSULIN ASPART [NOVOLOG] 3 ML PEN SC ×6 (01:00→21:00)
[2018-03-14] MEDS: SOD CHLORIDE 0.45% 1,000 ML IV ×2 (02:00→15:20)
[2018-03-14] MEDS: ACCU-CHEK XX (02:00)
[2018-03-14] MEDS: hydrALAzine 20 MG INJ IV (04:01)
[2018-03-14] MEDS: LORAZEPAM 2 MG INJ IV ×2 (05:29→22:43)
[2018-03-14] MEDS: INSULIN GLARGINE [LANTus] (100 UNITS/ML) SYG SC (08:00)
[2018-03-14] MEDS ORDERED: HEPARIN 5,000 UNIT/0.5 ML VIAL ×2 (08:09→21:13)
[2018-03-14] MEDS: FAMOTIDINE 20 MG TAB GTB (08:46)
[2018-03-14] MEDS: MINOXIDIL 2.5 MG TAB GTB ×2 (08:46→21:32)
[2018-03-14] MEDS: traZODone 50 MG TAB PO ×3 (08:46→21:23)
[2018-03-14] MEDS: ASPIRIN 81 MG TAB GTB (08:47)
[2018-03-14] MEDS: NIFEdipine 10 MG CAP GTB ×3 (08:48→21:23)
[2018-03-14] MEDS: morphine 2 MG INJ IV (08:50)
[2018-03-14] MEDS: HEPARIN SODIUM 5,000 UNIT/ML VIAL SC ×2 (08:55→21:21)
[2018-03-14 10:26] LABS: ADD MAN DIFF? NO
[2018-03-14 10:35] LABS: WHITE BLOOD COUNT 11.5 10^3/ul (4.8-10.8)
[2018-03-14 10:35] LABS: BASOPHILS % 0.3 % (0.0-2.0); EOSINOPHILS # 0.4 10^3/ul (0.0-0.5); EOSINOPHILS % 3.6 % (0.0-7.0); HEMATOCRIT 29.8 % (42.0-52.0); HEMOGLOBIN 9.6 g/dl (14.0-18.0); LYMPHOCYTES # 1.7 10^3/ul (0.8-2.9); LYMPHOCYTES % 15.2 % (15.0-51.0); MEAN CORPUSCULAR HEMOGLOBIN 30.9 pg (29.0-33.0); MEAN CORPUSCULAR HGB CONC 32.2 g/dl (32.0-37.0); MEAN CORPUSCULAR VOLUME 95.8 fl (82.0-101.0); MEAN PLATELET VOLUME 9.4 fl (7.4-10.4); MONOCYTE # 0.6 10^3/ul (0.3-0.9); MONOCYTES % 5.2 % (0.0-11.0); NEUTROPHIL # 8.6 10^3/ul (1.6-7.5); NEUTROPHILS % 75.2 % (39.0-77.0); PLATELET COUNT 368 10^3/UL (140-415); RED BLOOD COUNT 3.11 10^6/ul (4.70-6.10); RED CELL DISTRIBUTION WIDTH 13.1 % (11.5-14.5)
[2018-03-14 11:09] LABS: ALANINE AMINOTRANSFERASE 32 IU/L (13-69); ALBUMIN 3.2 g/dl (3.3-4.9); ALBUMIN/GLOBULIN RATIO 0.72; ALKALINE PHOSPHATASE 108 IU/L (42-121); ANION GAP 12 (5-13); ASPARTATE AMINO TRANSFERASE 25 IU/L (15-46); BILIRUBIN,INDIRECT 0.1 mg/dl (0-1.1); BILIRUBIN,TOTAL 0.1 mg/dl (0.2-1.3); BLOOD UREA NITROGEN 32 mg/dl (7-20); CALCIUM 8.6 mg/dl (8.4-10.2); CARBON DIOXIDE 16 mmol/L (21-31); CHLORIDE 114 mmol/L (97-110); CREATININE 2.33 mg/dl (0.61-1.24); GLUCOSE 100 mg/dl (70-220); MAGNESIUM 2.1 mg/dl (1.7-2.5); PHOSPHORUS 5.3 mg/dl (2.5-4.9); SODIUM 142 mmol/L (135-144); TOTAL PROTEIN 7.6 g/dl (6.1-8.1)
[2018-03-14] MEDS: TERAZOSIN 1 MG CAP GTB (21:22)
[2018-03-14] MEDS: ATORVASTATIN 20 MG TAB PO (21:22)
[2018-03-15] MEDS: INSULIN ASPART [NOVOLOG] 3 ML PEN SC ×6 (01:00→20:59)
[2018-03-15] MEDS: ACCU-CHEK XX (01:37)
[2018-03-15] MEDS: SOD CHLORIDE 0.45% 1,000 ML IV ×2 (01:37→15:18)
[2018-03-15] MEDS: morphine 2 MG INJ IV (04:13)
[2018-03-15] MEDS: LORAZEPAM 2 MG INJ IV (04:26)
[2018-03-15] MEDS: MIDAZOLAM (DRIP) 50 mg/50 mL 50 ML IV ×3 (04:59→23:04)
[2018-03-15 05:05] LABS: AADO2 Arterial 98.4 mmHg (7.0-24.0); Allen Test ACCEPTAB; Arterial Base Excess -8.9 mmol/L (-3.0-3); Arterial Blood Gas Oxygen Sat 95.9 mmHG (95.0-98.0); Arterial COHb 0.4 % (0.0-3.0); Arterial Fraction of Oxyhgb 95.2 % (93.0-99.0); Arterial HCO3 15.4 mmol/L (22.0-26.0); Arterial MetHb 0.3 % (0.0-1.5); Arterial Total Hemglobin 10.6 g/dl (12.0-18.0); Arterial pCO2 28.4 mmhg (35-45); MODE VENT - AC; Site Right Radial
[2018-03-15 05:11] LABS: ADD MAN DIFF? NO
[2018-03-15 05:13] LABS: WHITE BLOOD COUNT 14.1 10^3/ul (4.8-10.8)
[2018-03-15 05:13] LABS: BASOPHILS % 0.2 % (0.0-2.0); EOSINOPHILS # 0.4 10^3/ul (0.0-0.5); EOSINOPHILS % 2.8 % (0.0-7.0); LYMPHOCYTES # 1.9 10^3/ul (0.8-2.9); LYMPHOCYTES % 13.7 % (15.0-51.0); MEAN CORPUSCULAR HEMOGLOBIN 31.1 pg (29.0-33.0); MEAN CORPUSCULAR HGB CONC 32.1 g/dl (32.0-37.0); MEAN CORPUSCULAR VOLUME 96.9 fl (82.0-101.0); MEAN PLATELET VOLUME 8.8 fl (7.4-10.4); MONOCYTE # 0.6 10^3/ul (0.3-0.9); MONOCYTES % 4.3 % (0.0-11.0); NEUTROPHIL # 11.1 10^3/ul (1.6-7.5); NEUTROPHILS % 78.5 % (39.0-77.0); PLATELET COUNT 332 10^3/UL (140-415); RED BLOOD COUNT 2.89 10^6/ul (4.70-6.10); RED CELL DISTRIBUTION WIDTH 13.1 % (11.5-14.5)
[2018-03-15] MEDS ORDERED: PROPOFOL 100 ML (05:15)
[2018-03-15] MEDS: PROPOFOL 100 ML IV ×4 (05:44→23:24)
[2018-03-15 05:54] LABS: ANION GAP 14 (5-13); BLOOD UREA NITROGEN 32 mg/dl (7-20); CALCIUM 8.8 mg/dl (8.4-10.2); CARBON DIOXIDE 15 mmol/L (21-31); CHLORIDE 111 mmol/L (97-110); CREATININE 2.52 mg/dl (0.61-1.24); GLUCOSE 98 mg/dl (70-220); MAGNESIUM 2.1 mg/dl (1.7-2.5); PHOSPHORUS 5.3 mg/dl (2.5-4.9); SODIUM 140 mmol/L (135-144)
[2018-03-15] MEDS: INSULIN GLARGINE [LANTus] (100 UNITS/ML) SYG SC (08:00)
[2018-03-15] MEDS ORDERED: HEPARIN 5,000 UNIT/0.5 ML VIAL ×2 (08:57→20:36)
[2018-03-15] MEDS: ASPIRIN 81 MG TAB GTB (09:00)
[2018-03-15] MEDS: FAMOTIDINE 20 MG TAB GTB (09:00)
[2018-03-15] MEDS: HEPARIN SODIUM 5,000 UNIT/ML VIAL SC ×2 (09:03→20:53)
[2018-03-15] MEDS: MINOXIDIL 2.5 MG TAB GTB ×2 (09:06→20:47)
[2018-03-15] MEDS: traZODone 50 MG TAB PO ×3 (09:06→20:45)
[2018-03-15] MEDS: NIFEdipine 10 MG CAP GTB ×3 (09:07→20:47)
[2018-03-15] MEDS: ATORVASTATIN 20 MG TAB PO (20:45)
[2018-03-15] MEDS: TERAZOSIN 1 MG CAP GTB (20:46)
[2018-03-15] MEDS: DEXTROSE 5%-0.45% NACL 1,000 ML IV (23:05)
[2018-03-16] MEDS: INSULIN ASPART [NOVOLOG] 3 ML PEN SC ×6 (01:30→21:08)
[2018-03-16] MEDS: ACCU-CHEK XX (02:23)
[2018-03-16] MEDS: PROPOFOL 100 ML IV ×2 (04:46→09:03)
[2018-03-16 04:58] LABS: ADD MAN DIFF? NO
[2018-03-16 05:05] LABS: WHITE BLOOD COUNT 14.1 10^3/ul (4.8-10.8)
[2018-03-16 05:05] LABS: BASOPHILS % 0.2 % (0.0-2.0); EOSINOPHILS # 0.5 10^3/ul (0.0-0.5); EOSINOPHILS % 3.4 % (0.0-7.0); HEMATOCRIT 28.1 % (42.0-52.0); HEMOGLOBIN 8.8 g/dl (14.0-18.0); LYMPHOCYTES # 1.4 10^3/ul (0.8-2.9); LYMPHOCYTES % 9.6 % (15.0-51.0); MEAN CORPUSCULAR HEMOGLOBIN 31.7 pg (29.0-33.0); MEAN CORPUSCULAR HGB CONC 31.3 g/dl (32.0-37.0); MEAN CORPUSCULAR VOLUME 101.1 fl (82.0-101.0); MEAN PLATELET VOLUME 9.7 fl (7.4-10.4); MONOCYTE # 0.6 10^3/ul (0.3-0.9); MONOCYTES % 4.3 % (0.0-11.0); NEUTROPHIL # 11.6 10^3/ul (1.6-7.5); NEUTROPHILS % 81.9 % (39.0-77.0); PLATELET COUNT 369 10^3/UL (140-415); POSITIVE DIFF @See below; RED BLOOD COUNT 2.78 10^6/ul (4.70-6.10); RED CELL DISTRIBUTION WIDTH 13.3 % (11.5-14.5)
[2018-03-16 05:32] LABS: AADO2 Arterial 116.7 mmHg (7.0-24.0); Allen Test ACCEPTAB; Arterial Base Excess -7.9 mmol/L (-3.0-3); Arterial COHb 0.3 % (0.0-3.0); Arterial Fraction of Oxyhgb 88.5 % (93.0-99.0); Arterial HCO3 17.4 mmol/L (22.0-26.0); Arterial MetHb 0.3 % (0.0-1.5); Arterial Total Hemglobin 9.9 g/dl (12.0-18.0); Arterial pCO2 34.3 mmhg (35-45); Blood Gas PS 6; MODE VENT - CPAP; Site Right Radial
[2018-03-16 05:37] LABS: ANION GAP 12 (5-13); BLOOD UREA NITROGEN 30 mg/dl (7-20); CALCIUM 8.1 mg/dl (8.4-10.2); CARBON DIOXIDE 16 mmol/L (21-31); CHLORIDE 111 mmol/L (97-110); CREATININE 2.26 mg/dl (0.61-1.24); GLUCOSE 98 mg/dl (70-220); MAGNESIUM 2.1 mg/dl (1.7-2.5); PHOSPHORUS 5.6 mg/dl (2.5-4.9); POTASSIUM 5.2 mmol/L (3.5-5.1); SODIUM 139 mmol/L (135-144)
[2018-03-16] MEDS ORDERED: HEPARIN 5,000 UNIT/0.5 ML VIAL ×2 (08:21→20:55)
[2018-03-16] MEDS: INSULIN GLARGINE [LANTus] (100 UNITS/ML) SYG SC (08:31)
[2018-03-16] MEDS: ASPIRIN 81 MG TAB GTB (08:32)
[2018-03-16] MEDS: FAMOTIDINE 20 MG TAB GTB (08:33)
[2018-03-16] MEDS: MINOXIDIL 2.5 MG TAB GTB ×2 (08:33→20:49)
[2018-03-16] MEDS: NIFEdipine 10 MG CAP GTB ×3 (08:34→20:49)
[2018-03-16] MEDS: traZODone 50 MG TAB PO ×3 (08:35→21:05)
[2018-03-16] MEDS: HEPARIN SODIUM 5,000 UNIT/ML VIAL SC ×2 (08:36→21:08)
[2018-03-16] MEDS: hydrALAzine 20 MG INJ IV (11:09)
[2018-03-16] MEDS: DEXTROSE 5%-0.45% NACL 1,000 ML IV ×2 (11:10→23:00)
[2018-03-16] MEDS: QUETIAPINE 25 MG TAB PO (21:06)
[2018-03-16] MEDS: ATORVASTATIN 20 MG TAB PO (21:06)
[2018-03-16] MEDS: TERAZOSIN 1 MG CAP GTB (21:09)
[2018-03-17] MEDS: INSULIN ASPART [NOVOLOG] 3 ML PEN SC ×6 (01:03→21:00)
[2018-03-17] MEDS: ACCU-CHEK XX (01:15)
[2018-03-17] MEDS: PROPOFOL 100 ML IV ×3 (03:02→21:31)
[2018-03-17 05:05] LABS: ADD MAN DIFF? NO
[2018-03-17 05:16] LABS: BASOPHILS % 0.1 % (0.0-2.0); EOSINOPHILS # 0.6 10^3/ul (0.0-0.5); HEMATOCRIT 24.7 % (42.0-52.0); LYMPHOCYTES # 1.7 10^3/ul (0.8-2.9); LYMPHOCYTES % 16.8 % (15.0-51.0); MEAN CORPUSCULAR HEMOGLOBIN 31.7 pg (29.0-33.0); MEAN CORPUSCULAR HGB CONC 32.4 g/dl (32.0-37.0); MEAN PLATELET VOLUME 9.2 fl (7.4-10.4); MONOCYTE # 0.5 10^3/ul (0.3-0.9); MONOCYTES % 5.2 % (0.0-11.0); NEUTROPHIL # 7.2 10^3/ul (1.6-7.5); NEUTROPHILS % 71.4 % (39.0-77.0); PLATELET COUNT 287 10^3/UL (140-415); RED BLOOD COUNT 2.52 10^6/ul (4.70-6.10); RED CELL DISTRIBUTION WIDTH 13.7 % (11.5-14.5)
[2018-03-17 05:16] LABS: WHITE BLOOD COUNT 10.1 10^3/ul (4.8-10.8)
[2018-03-17 05:37] LABS: ANION GAP 8 (5-13); BLOOD UREA NITROGEN 25 mg/dl (7-20); CALCIUM 8.2 mg/dl (8.4-10.2); CARBON DIOXIDE 18 mmol/L (21-31); CHLORIDE 115 mmol/L (97-110); CREATININE 2.31 mg/dl (0.61-1.24); GLUCOSE 131 mg/dl (70-220); MAGNESIUM 2.1 mg/dl (1.7-2.5); PHOSPHORUS 4.9 mg/dl (2.5-4.9); POTASSIUM 4.4 mmol/L (3.5-5.1); SODIUM 141 mmol/L (135-144)
[2018-03-17] MEDS ORDERED: HEPARIN 5,000 UNIT/0.5 ML VIAL ×2 (08:25→21:16)
[2018-03-17] MEDS: INSULIN GLARGINE [LANTus] (100 UNITS/ML) SYG SC (08:43)
[2018-03-17] MEDS: MINOXIDIL 2.5 MG TAB GTB ×2 (08:44→21:31)
[2018-03-17] MEDS: ASPIRIN 81 MG TAB GTB (08:44)
[2018-03-17] MEDS: FAMOTIDINE 20 MG TAB GTB (08:44)
[2018-03-17] MEDS: NIFEdipine 10 MG CAP GTB ×3 (08:45→21:32)
[2018-03-17] MEDS: HEPARIN SODIUM 5,000 UNIT/ML VIAL SC ×2 (08:46→21:49)
[2018-03-17] MEDS: morphine 2 MG INJ IV (09:00)
[2018-03-17] MEDS: TERAZOSIN 1 MG CAP GTB (11:17)
[2018-03-17] MEDS: traZODone 50 MG TAB PO ×3 (11:29→21:31)
[2018-03-17] MEDS: DEXTROSE 5%-0.45% NACL 1,000 ML IV (14:01)
[2018-03-17] MEDS: ATORVASTATIN 20 MG TAB PO (21:31)
[2018-03-18] MEDS: QUETIAPINE 25 MG TAB PO ×2 (00:03→20:43)
[2018-03-18] MEDS: INSULIN ASPART [NOVOLOG] 3 ML PEN SC ×6 (01:51→21:00)
[2018-03-18] MEDS: ACCU-CHEK XX (02:00)
[2018-03-18] MEDS: PROPOFOL 100 ML IV ×2 (04:25→14:48)
[2018-03-18] MEDS: DEXTROSE 5%-0.45% NACL 1,000 ML IV (04:25)
[2018-03-18] MEDS: SOD CHLORIDE 0.9% 250 ML IV (05:24)
[2018-03-18 05:36] LABS: ADD MAN DIFF? NO
[2018-03-18 05:40] LABS: WHITE BLOOD COUNT 8.6 10^3/ul (4.8-10.8)
[2018-03-18 05:40] LABS: BASOPHILS % 0.1 % (0.0-2.0); EOSINOPHILS # 0.6 10^3/ul (0.0-0.5); HEMATOCRIT 23.7 % (42.0-52.0); HEMOGLOBIN 7.4 g/dl (14.0-18.0); LYMPHOCYTES # 1.6 10^3/ul (0.8-2.9); LYMPHOCYTES % 19.2 % (15.0-51.0); MEAN CORPUSCULAR HEMOGLOBIN 30.7 pg (29.0-33.0); MEAN CORPUSCULAR HGB CONC 31.2 g/dl (32.0-37.0); MEAN CORPUSCULAR VOLUME 98.3 fl (82.0-101.0); MEAN PLATELET VOLUME 9.2 fl (7.4-10.4); MONOCYTE # 0.5 10^3/ul (0.3-0.9); MONOCYTES % 5.6 % (0.0-11.0); NEUTROPHIL # 5.8 10^3/ul (1.6-7.5); NEUTROPHILS % 67.6 % (39.0-77.0); PLATELET COUNT 273 10^3/UL (140-415); RED BLOOD COUNT 2.41 10^6/ul (4.70-6.10)
[2018-03-18 06:15] LABS: ANION GAP 9 (5-13); BLOOD UREA NITROGEN 27 mg/dl (7-20); CALCIUM 8.2 mg/dl (8.4-10.2); CARBON DIOXIDE 20 mmol/L (21-31); CHLORIDE 114 mmol/L (97-110); CREATININE 2.28 mg/dl (0.61-1.24); Estimated GFR 29 mL/min (>60); GLUCOSE 156 mg/dl (70-220); PHOSPHORUS 4.6 mg/dl (2.5-4.9); POTASSIUM 4.5 mmol/L (3.5-5.1); SODIUM 143 mmol/L (135-144)
[2018-03-18] MEDS ORDERED: HEPARIN 5,000 UNIT/0.5 ML VIAL ×2 (08:03→20:36)
[2018-03-18] MEDS: MINOXIDIL 2.5 MG TAB GTB ×2 (08:53→20:43)
[2018-03-18] MEDS: ASPIRIN 81 MG TAB GTB (08:54)
[2018-03-18] MEDS: FAMOTIDINE 20 MG TAB GTB (08:54)
[2018-03-18] MEDS: traZODone 50 MG TAB PO ×3 (08:54→20:43)
[2018-03-18] MEDS: INSULIN GLARGINE [LANTus] (100 UNITS/ML) SYG SC (08:58)
[2018-03-18] MEDS: HEPARIN SODIUM 5,000 UNIT/ML VIAL SC ×2 (08:59→20:59)
[2018-03-18] MEDS: NIFEdipine 10 MG CAP GTB ×2 (10:06→13:00)
[2018-03-18] MEDS: SOD CHLORIDE 0.9% 1,000 ML IV ×2 (12:12→17:26)
[2018-03-18] MEDS: LORAZEPAM 2 MG INJ IV ×2 (12:36→17:27)
[2018-03-18] MEDS: morphine 2 MG INJ IV (17:27)
[2018-03-18] MEDS: ATORVASTATIN 20 MG TAB PO (20:43)
[2018-03-18] MEDS: TERAZOSIN 1 MG CAP GTB (20:43)
[2018-03-19] MEDS: MAGNESIUM HYDROXIDE 30ML CUP PO (01:00)
[2018-03-19] MEDS: INSULIN ASPART [NOVOLOG] 3 ML PEN SC ×6 (01:00→21:00)
[2018-03-19] MEDS: SOD CHLORIDE 0.9% 1,000 ML IV ×3 (01:01→17:17)
[2018-03-19] MEDS: ACCU-CHEK XX (01:01)
[2018-03-19 05:01] LABS: ADD MAN DIFF? NO; BASOPHILS % 0.1 % (0.0-2.0); EOSINOPHILS # 0.6 10^3/ul (0.0-0.5); EOSINOPHILS % 6.9 % (0.0-7.0); HEMATOCRIT 26.2 % (42.0-52.0); HEMOGLOBIN 8.2 g/dl (14.0-18.0); LYMPHOCYTES # 1.3 10^3/ul (0.8-2.9); LYMPHOCYTES % 14.6 % (15.0-51.0); MEAN CORPUSCULAR HEMOGLOBIN 30.8 pg (29.0-33.0); MEAN CORPUSCULAR HGB CONC 31.3 g/dl (32.0-37.0); MEAN CORPUSCULAR VOLUME 98.5 fl (82.0-101.0); MEAN PLATELET VOLUME 9.3 fl (7.4-10.4); MONOCYTE # 0.5 10^3/ul (0.3-0.9); MONOCYTES % 5.8 % (0.0-11.0); NEUTROPHIL # 6.6 10^3/ul (1.6-7.5); NEUTROPHILS % 71.8 % (39.0-77.0); PLATELET COUNT 276 10^3/UL (140-415); RED BLOOD COUNT 2.66 10^6/ul (4.70-6.10); RED CELL DISTRIBUTION WIDTH 13.9 % (11.5-14.5)
[2018-03-19 05:01] LABS: WHITE BLOOD COUNT 9.2 10^3/ul (4.8-10.8)
[2018-03-19 05:31] LABS: ANION GAP 9 (5-13); BLOOD UREA NITROGEN 31 mg/dl (7-20); CARBON DIOXIDE 19 mmol/L (21-31); CHLORIDE 114 mmol/L (97-110); CREATININE 1.99 mg/dl (0.61-1.24); Estimated GFR 34 mL/min (>60); GLUCOSE 131 mg/dl (70-220); POTASSIUM 5.1 mmol/L (3.5-5.1); SODIUM 142 mmol/L (135-144)
[2018-03-19] MEDS: LORAZEPAM 2 MG INJ IV ×4 (07:49→19:53)
[2018-03-19] MEDS: morphine 2 MG INJ IV ×4 (07:49→18:20)
[2018-03-19] MEDS: FAMOTIDINE 20 MG TAB GTB (08:01)
[2018-03-19] MEDS: MINOXIDIL 2.5 MG TAB GTB ×2 (08:01→20:50)
[2018-03-19] MEDS: ASPIRIN 81 MG TAB GTB (08:01)
[2018-03-19] MEDS: traZODone 50 MG TAB PO ×3 (08:01→20:50)
[2018-03-19] MEDS: INSULIN GLARGINE [LANTus] (100 UNITS/ML) SYG SC (08:03)
[2018-03-19] MEDS: SENNA TAB PO ×2 (08:11→20:50)
[2018-03-19] MEDS ORDERED: HEPARIN 5,000 UNIT/0.5 ML VIAL ×2 (08:20→20:45)
[2018-03-19] MEDS: HEPARIN SODIUM 5,000 UNIT/ML VIAL SC ×2 (08:25→21:10)
[2018-03-19] MEDS: ATORVASTATIN 20 MG TAB PO (20:50)
[2018-03-19] MEDS: QUETIAPINE 25 MG TAB PO (20:50)
[2018-03-19] MEDS: TERAZOSIN 1 MG CAP GTB (20:51)
[2018-03-20] MEDS: INSULIN ASPART [NOVOLOG] 3 ML PEN SC ×6 (01:00→21:00)
[2018-03-20] MEDS: SOD CHLORIDE 0.9% 1,000 ML IV (02:00)
[2018-03-20] MEDS: ACCU-CHEK XX (02:02)
[2018-03-20] MEDS: ACETAMINOPHEN 325 MG TAB GTB (04:49)
[2018-03-20 05:03] LABS: ADD MAN DIFF? NO; BASOPHILS % 0.1 % (0.0-2.0); EOSINOPHILS # 0.5 10^3/ul (0.0-0.5); EOSINOPHILS % 4.8 % (0.0-7.0); HEMATOCRIT 24.2 % (42.0-52.0); HEMOGLOBIN 7.7 g/dl (14.0-18.0); LYMPHOCYTES # 1.5 10^3/ul (0.8-2.9); LYMPHOCYTES % 14.4 % (15.0-51.0); MEAN CORPUSCULAR HEMOGLOBIN 31.4 pg (29.0-33.0); MEAN CORPUSCULAR HGB CONC 31.8 g/dl (32.0-37.0); MEAN CORPUSCULAR VOLUME 98.8 fl (82.0-101.0); MEAN PLATELET VOLUME 8.9 fl (7.4-10.4); MONOCYTE # 0.9 10^3/ul (0.3-0.9); MONOCYTES % 8.1 % (0.0-11.0); NEUTROPHIL # 7.7 10^3/ul (1.6-7.5); PLATELET COUNT 251 10^3/UL (140-415); RED BLOOD COUNT 2.45 10^6/ul (4.70-6.10); RED CELL DISTRIBUTION WIDTH 13.8 % (11.5-14.5)
[2018-03-20 05:03] LABS: WHITE BLOOD COUNT 10.7 10^3/ul (4.8-10.8)
[2018-03-20] MEDS: morphine 2 MG INJ IV ×3 (05:08→18:34)
[2018-03-20] MEDS: LORAZEPAM 2 MG INJ IV ×2 (05:09→12:26)
[2018-03-20 05:32] LABS: ANION GAP 8 (5-13); BLOOD UREA NITROGEN 35 mg/dl (7-20); CALCIUM 7.7 mg/dl (8.4-10.2); CARBON DIOXIDE 19 mmol/L (21-31); CHLORIDE 114 mmol/L (97-110); CREATININE 1.81 mg/dl (0.61-1.24); Estimated GFR 38 mL/min (>60); GLUCOSE 122 mg/dl (70-220); PHOSPHORUS 3.7 mg/dl (2.5-4.9); POTASSIUM 5.2 mmol/L (3.5-5.1); SODIUM 141 mmol/L (135-144)
[2018-03-20] MEDS ORDERED: HEPARIN 5,000 UNIT/0.5 ML VIAL ×2 (08:17→20:29)
[2018-03-20] MEDS: traZODone 50 MG TAB PO ×3 (08:31→21:00)
[2018-03-20] MEDS: SENNA TAB PO ×2 (08:32→20:59)
[2018-03-20] MEDS: ASPIRIN 81 MG TAB GTB (08:32)
[2018-03-20] MEDS: FAMOTIDINE 20 MG TAB GTB (08:32)
[2018-03-20] MEDS: MINOXIDIL 2.5 MG TAB GTB ×2 (08:36→21:08)
[2018-03-20] MEDS: HEPARIN SODIUM 5,000 UNIT/ML VIAL SC ×2 (08:40→21:01)
[2018-03-20] MEDS: INSULIN GLARGINE [LANTus] (100 UNITS/ML) SYG SC (08:56)
[2018-03-20] MEDS: SOD CHLORIDE 0.45% 1,000 ML IV (11:10)
[2018-03-20] MEDS: QUETIAPINE 25 MG TAB PO (21:00)
[2018-03-20] MEDS: ATORVASTATIN 20 MG TAB PO (21:00)
[2018-03-20] MEDS: TERAZOSIN 1 MG CAP GTB (22:59)
[2018-03-21] MEDS: SOD CHLORIDE 0.45% 1,000 ML IV ×2 (00:56→15:11)
[2018-03-21] MEDS: INSULIN ASPART [NOVOLOG] 3 ML PEN SC ×6 (00:56→21:00)
[2018-03-21] MEDS: ACCU-CHEK XX (02:00)
[2018-03-21] MEDS: LORAZEPAM 2 MG INJ IV (03:05)
[2018-03-21 05:14] LABS: ADD MAN DIFF? NO
[2018-03-21 05:21] LABS: BASOPHILS % 0.1 % (0.0-2.0); EOSINOPHILS # 0.7 10^3/ul (0.0-0.5); EOSINOPHILS % 6.5 % (0.0-7.0); HEMATOCRIT 23.7 % (42.0-52.0); HEMOGLOBIN 7.5 g/dl (14.0-18.0); LYMPHOCYTES # 1.2 10^3/ul (0.8-2.9); LYMPHOCYTES % 11.7 % (15.0-51.0); MEAN CORPUSCULAR HEMOGLOBIN 31.3 pg (29.0-33.0); MEAN CORPUSCULAR HGB CONC 31.6 g/dl (32.0-37.0); MEAN CORPUSCULAR VOLUME 98.8 fl (82.0-101.0); MEAN PLATELET VOLUME 9.4 fl (7.4-10.4); MONOCYTE # 0.8 10^3/ul (0.3-0.9); MONOCYTES % 7.7 % (0.0-11.0); NEUTROPHIL # 7.7 10^3/ul (1.6-7.5); NEUTROPHILS % 73.5 % (39.0-77.0); PLATELET COUNT 255 10^3/UL (140-415); RED CELL DISTRIBUTION WIDTH 13.4 % (11.5-14.5)
[2018-03-21 05:21] LABS: WHITE BLOOD COUNT 10.5 10^3/ul (4.8-10.8)
[2018-03-21 05:58] LABS: ANION GAP 8 (5-13); BLOOD UREA NITROGEN 40 mg/dl (7-20); CALCIUM 7.8 mg/dl (8.4-10.2); CARBON DIOXIDE 20 mmol/L (21-31); CHLORIDE 110 mmol/L (97-110); CREATININE 1.91 mg/dl (0.61-1.24); Estimated GFR 36 mL/min (>60); GLUCOSE 108 mg/dl (70-220); PHOSPHORUS 4.2 mg/dl (2.5-4.9); POTASSIUM 5.1 mmol/L (3.5-5.1); SODIUM 138 mmol/L (135-144)
[2018-03-21] MEDS ORDERED: HEPARIN 5,000 UNIT/0.5 ML VIAL ×2 (09:41→21:11)
[2018-03-21] MEDS: INSULIN GLARGINE [LANTus] (100 UNITS/ML) SYG SC (10:00)
[2018-03-21] MEDS: HEPARIN SODIUM 5,000 UNIT/ML VIAL SC ×2 (10:00→21:26)
[2018-03-21] MEDS: ASPIRIN 81 MG TAB GTB (10:01)
[2018-03-21] MEDS: MINOXIDIL 2.5 MG TAB GTB ×2 (10:01→21:25)
[2018-03-21] MEDS: FAMOTIDINE 20 MG TAB GTB (10:01)
[2018-03-21] MEDS: traZODone 50 MG TAB PO ×3 (10:01→21:25)
[2018-03-21] MEDS: SENNA TAB PO ×2 (10:02→21:24)
[2018-03-21] MEDS: ATORVASTATIN 20 MG TAB PO (21:24)
[2018-03-21] MEDS: QUETIAPINE 25 MG TAB PO (21:24)
[2018-03-21] MEDS: TERAZOSIN 1 MG CAP GTB (21:25)
[2018-03-22] MEDS: INSULIN ASPART [NOVOLOG] 3 ML PEN SC ×6 (00:30→21:00)
[2018-03-22] MEDS: ACCU-CHEK XX (02:00)
[2018-03-22] MEDS: LORAZEPAM 2 MG INJ IV ×4 (03:20→15:52)
[2018-03-22] MEDS: SOD CHLORIDE 0.45% 1,000 ML IV ×3 (03:20→22:00)
[2018-03-22 05:20] LABS: ADD MAN DIFF? NO
[2018-03-22 05:29] LABS: WHITE BLOOD COUNT 7.6 10^3/ul (4.8-10.8)
[2018-03-22 05:29] LABS: BASOPHILS % 0.1 % (0.0-2.0); EOSINOPHILS # 0.5 10^3/ul (0.0-0.5); EOSINOPHILS % 6.9 % (0.0-7.0); HEMATOCRIT 21.6 % (42.0-52.0); LYMPHOCYTES # 1.4 10^3/ul (0.8-2.9); LYMPHOCYTES % 17.7 % (15.0-51.0); MEAN CORPUSCULAR HEMOGLOBIN 31.3 pg (29.0-33.0); MEAN CORPUSCULAR HGB CONC 32.4 g/dl (32.0-37.0); MEAN CORPUSCULAR VOLUME 96.4 fl (82.0-101.0); MEAN PLATELET VOLUME 9.8 fl (7.4-10.4); MONOCYTE # 0.6 10^3/ul (0.3-0.9); NEUTROPHIL # 5.1 10^3/ul (1.6-7.5); NEUTROPHILS % 66.8 % (39.0-77.0); PLATELET COUNT 265 10^3/UL (140-415); RED BLOOD COUNT 2.24 10^6/ul (4.70-6.10); RED CELL DISTRIBUTION WIDTH 13.2 % (11.5-14.5)
[2018-03-22 05:53] LABS: ANION GAP 3 (5-13); BLOOD UREA NITROGEN 40 mg/dl (7-20); CALCIUM 7.8 mg/dl (8.4-10.2); CARBON DIOXIDE 22 mmol/L (21-31); CHLORIDE 113 mmol/L (97-110); CREATININE 1.85 mg/dl (0.61-1.24); Estimated GFR 37 mL/min (>60); GLUCOSE 107 mg/dl (70-220); MAGNESIUM 2.1 mg/dl (1.7-2.5); PHOSPHORUS 4.2 mg/dl (2.5-4.9); POTASSIUM 4.7 mmol/L (3.5-5.1); SODIUM 138 mmol/L (135-144)
[2018-03-22] MEDS ORDERED: VANCOMYCIN IV PER PHARMACY XX (09:00)
[2018-03-22] MEDS: FAMOTIDINE 20 MG TAB GTB (09:00)
[2018-03-22] MEDS ORDERED: HEPARIN 5,000 UNIT/0.5 ML VIAL ×2 (09:58→20:46)
[2018-03-22] MEDS: INSULIN GLARGINE [LANTus] (100 UNITS/ML) SYG SC (10:05)
[2018-03-22] MEDS: HEPARIN SODIUM 5,000 UNIT/ML VIAL SC ×2 (10:06→21:08)
[2018-03-22] MEDS: SENNA TAB PO ×2 (10:13→20:55)
[2018-03-22] MEDS: traZODone 50 MG TAB PO ×3 (10:13→20:54)
[2018-03-22] MEDS: ASPIRIN 81 MG TAB GTB (10:13)
[2018-03-22] MEDS: MINOXIDIL 2.5 MG TAB GTB ×2 (10:14→20:56)
[2018-03-22] MEDS: LEVOFLOXACIN 750MG/D5W (PMX) 150 ML IVPB (10:23)
[2018-03-22] MEDS: VANCOMYCIN 1.5 GM in SOD CHLORIDE 0.9% 250 ML IVPB (10:28)
[2018-03-22 12:51] LABS: IMMEDIATE SPIN CROSSMATCH 1 2
[2018-03-22] MEDS: SOD CHLORIDE 0.9% 250 ML IV* (13:01)
[2018-03-22] MEDS: morphine 2 MG INJ IV (15:42)
[2018-03-22] MEDS: MUPIROCIN 2% 22 GM OINT TOP (17:34)
[2018-03-22] MEDS: ERTAPENEM SODIUM 1 GM in SOD CHLORIDE 0.9% 100 ML IVPB (17:35)
[2018-03-22] MEDS: QUETIAPINE 25 MG TAB PO (20:55)
[2018-03-22] MEDS: TERAZOSIN 1 MG CAP GTB (20:56)
[2018-03-22] MEDS: ATORVASTATIN 20 MG TAB PO (21:08)
[2018-03-22] MEDS: TOBRAMYCIN/0.25NS 300 MG/5 ML INHAL NEB (23:04)
[2018-03-23] MEDS: INSULIN ASPART [NOVOLOG] 3 ML PEN SC ×6 (01:00→21:00)
[2018-03-23] MEDS: MUPIROCIN 2% 22 GM OINT TOP ×3 (01:00→21:14)
[2018-03-23] MEDS: ACCU-CHEK XX (02:00)
[2018-03-23] MEDS: LORAZEPAM 2 MG INJ IV ×3 (04:26→22:36)
[2018-03-23] MEDS: morphine 2 MG INJ IV ×2 (05:04→11:09)
[2018-03-23 06:41] LABS: ADD MAN DIFF? NO
[2018-03-23 06:46] LABS: BASOPHILS % 0.1 % (0.0-2.0); EOSINOPHILS # 0.4 10^3/ul (0.0-0.5); EOSINOPHILS % 6.1 % (0.0-7.0); HEMATOCRIT 24.5 % (42.0-52.0); LYMPHOCYTES # 1.5 10^3/ul (0.8-2.9); LYMPHOCYTES % 20.7 % (15.0-51.0); MEAN CORPUSCULAR HGB CONC 32.7 g/dl (32.0-37.0); MEAN PLATELET VOLUME 8.8 fl (7.4-10.4); MONOCYTE # 0.6 10^3/ul (0.3-0.9); MONOCYTES % 8.1 % (0.0-11.0); NEUTROPHIL # 4.6 10^3/ul (1.6-7.5); NEUTROPHILS % 64.6 % (39.0-77.0); PLATELET COUNT 286 10^3/UL (140-415); RED BLOOD COUNT 2.58 10^6/ul (4.70-6.10); RED CELL DISTRIBUTION WIDTH 14.4 % (11.5-14.5)
[2018-03-23 06:46] LABS: WHITE BLOOD COUNT 7.2 10^3/ul (4.8-10.8)
[2018-03-23 07:21] LABS: PHOSPHORUS 4.6 mg/dl (2.5-4.9)
[2018-03-23 07:21] LABS: MAGNESIUM 2.1 mg/dl (1.7-2.5)
[2018-03-23 07:23] LABS: ANION GAP 9 (5-13); BLOOD UREA NITROGEN 38 mg/dl (7-20); CALCIUM 8.3 mg/dl (8.4-10.2); CARBON DIOXIDE 22 mmol/L (21-31); CHLORIDE 109 mmol/L (97-110); CREATININE 2.15 mg/dl (0.61-1.24); Estimated GFR 31 mL/min (>60); GLUCOSE 94 mg/dl (70-220); POTASSIUM 4.8 mmol/L (3.5-5.1); SODIUM 140 mmol/L (135-144)
[2018-03-23] MEDS: TOBRAMYCIN/0.25NS 300 MG/5 ML INHAL NEB ×2 (09:17→19:32)
[2018-03-23] MEDS ORDERED: VANCOMYCIN 1 GM 250 ML IVPB (10:00)
[2018-03-23] MEDS ORDERED: HEPARIN 5,000 UNIT/0.5 ML VIAL ×2 (10:13→20:29)
[2018-03-23] MEDS: INSULIN GLARGINE [LANTus] (100 UNITS/ML) SYG SC (10:20)
[2018-03-23] MEDS: HEPARIN SODIUM 5,000 UNIT/ML VIAL SC ×2 (10:21→21:13)
[2018-03-23] MEDS: ASPIRIN 81 MG TAB GTB (10:32)
[2018-03-23] MEDS: SENNA TAB PO ×2 (10:32→21:09)
[2018-03-23] MEDS: traZODone 50 MG TAB PO ×3 (10:33→21:10)
[2018-03-23] MEDS: FAMOTIDINE 20 MG TAB GTB (10:33)
[2018-03-23] MEDS: MINOXIDIL 2.5 MG TAB GTB (10:33)
[2018-03-23] MEDS: SOD CHLORIDE 0.45% 1,000 ML IV (11:26)
[2018-03-23] MEDS: VANCOMYCIN 750 MG in SOD CHLORIDE 0.9% 150 ML IVPB (13:46)
[2018-03-23] MEDS: hydrALAzine 20 MG INJ IV (13:47)
[2018-03-23] MEDS: ERTAPENEM SODIUM 1 GM in SOD CHLORIDE 0.9% 100 ML IVPB (17:30)
[2018-03-23] MEDS: MINOXIDIL 2.5 MG TAB PO (21:00)
[2018-03-23] MEDS: QUETIAPINE 25 MG TAB PO (21:09)
[2018-03-23] MEDS: ATORVASTATIN 20 MG TAB PO (21:09)
[2018-03-23] MEDS: DOXYCYCLINE 100 MG TAB PO (21:10)
[2018-03-23] MEDS: TERAZOSIN 1 MG CAP GTB (21:10)
[2018-03-24] MEDS: INSULIN ASPART [NOVOLOG] 3 ML PEN SC ×6 (01:00→21:00)
[2018-03-24] MEDS: SOD CHLORIDE 0.45% 1,000 ML IV ×2 (01:21→14:31)
[2018-03-24] MEDS: ACCU-CHEK XX (01:29)
[2018-03-24 05:03] LABS: ADD MAN DIFF? NO
[2018-03-24 05:04] LABS: BASOPHILS % 0.2 % (0.0-2.0); EOSINOPHILS # 0.5 10^3/ul (0.0-0.5); EOSINOPHILS % 9.3 % (0.0-7.0); HEMATOCRIT 22.5 % (42.0-52.0); HEMOGLOBIN 7.2 g/dl (14.0-18.0); LYMPHOCYTES # 1.5 10^3/ul (0.8-2.9); LYMPHOCYTES % 29.2 % (15.0-51.0); MEAN CORPUSCULAR HEMOGLOBIN 30.8 pg (29.0-33.0); MEAN CORPUSCULAR VOLUME 96.2 fl (82.0-101.0); MONOCYTE # 0.5 10^3/ul (0.3-0.9); MONOCYTES % 9.3 % (0.0-11.0); NEUTROPHIL # 2.7 10^3/ul (1.6-7.5); NEUTROPHILS % 51.6 % (39.0-77.0); PLATELET COUNT 266 10^3/UL (140-415); RED BLOOD COUNT 2.34 10^6/ul (4.70-6.10); RED CELL DISTRIBUTION WIDTH 13.9 % (11.5-14.5)
[2018-03-24 05:04] LABS: WHITE BLOOD COUNT 5.2 10^3/ul (4.8-10.8)
[2018-03-24 05:32] LABS: ANION GAP 5 (5-13); BLOOD UREA NITROGEN 38 mg/dl (7-20); CALCIUM 7.8 mg/dl (8.4-10.2); CARBON DIOXIDE 23 mmol/L (21-31); CHLORIDE 111 mmol/L (97-110); CREATININE 1.92 mg/dl (0.61-1.24); Estimated GFR 36 mL/min (>60); GLUCOSE 122 mg/dl (70-220); MAGNESIUM 2.1 mg/dl (1.7-2.5); PHOSPHORUS 4.4 mg/dl (2.5-4.9); POTASSIUM 4.7 mmol/L (3.5-5.1); SODIUM 139 mmol/L (135-144)
[2018-03-24] MEDS: LORAZEPAM 2 MG INJ IV ×4 (06:24→14:58)
[2018-03-24] MEDS ORDERED: HEPARIN 5,000 UNIT/0.5 ML VIAL ×2 (07:40→21:29)
[2018-03-24] MEDS: morphine 2 MG INJ IV ×3 (07:50→17:29)
[2018-03-24] MEDS: INSULIN GLARGINE [LANTus] (100 UNITS/ML) SYG SC (07:52)
[2018-03-24] MEDS: TOBRAMYCIN/0.25NS 300 MG/5 ML INHAL NEB ×2 (07:54→19:15)
[2018-03-24] MEDS: FAMOTIDINE 20 MG TAB GTB (08:00)
[2018-03-24] MEDS: ASPIRIN 81 MG TAB GTB (08:00)
[2018-03-24] MEDS: SENNA TAB PO ×2 (08:01→21:39)
[2018-03-24] MEDS: MINOXIDIL 2.5 MG TAB PO ×2 (08:01→21:53)
[2018-03-24] MEDS: traZODone 50 MG TAB PO ×3 (08:01→21:38)
[2018-03-24] MEDS: HEPARIN SODIUM 5,000 UNIT/ML VIAL SC ×2 (08:02→21:48)
[2018-03-24] MEDS: DOXYCYCLINE 100 MG TAB PO ×2 (08:09→21:39)
[2018-03-24] MEDS: MUPIROCIN 2% 22 GM OINT TOP ×2 (08:10→21:54)
[2018-03-24] MEDS: HALOPERIDOL 5 MG INJ IM (14:54)
[2018-03-24] MEDS: ERTAPENEM SODIUM 1 GM in SOD CHLORIDE 0.9% 100 ML IVPB (16:38)
[2018-03-24] MEDS: SOD FERRIC GLUC COMPLX 125 MG in SOD CHLORIDE 0.9% 100 ML IVPB (17:35)
[2018-03-24] MEDS ORDERED: QUETIAPINE 25 MG TAB PO (21:00)
[2018-03-24] MEDS: TERAZOSIN 1 MG CAP GTB (21:38)
[2018-03-24] MEDS: QUETIAPINE 100 MG TAB PO (21:39)
[2018-03-24] MEDS: ATORVASTATIN 20 MG TAB PO (22:45)
[2018-03-25] MEDS: INSULIN ASPART [NOVOLOG] 3 ML PEN SC ×4 (01:00→12:00)
[2018-03-25] MEDS: ACCU-CHEK XX (01:35)
[2018-03-25] MEDS: LORAZEPAM 2 MG INJ IV ×3 (04:01→14:27)
[2018-03-25] MEDS: morphine 2 MG INJ IV ×3 (04:44→14:08)
[2018-03-25 05:00] LABS: ADD MAN DIFF? NO
[2018-03-25] MEDS: SOD CHLORIDE 0.45% 1,000 ML IV (05:00)
[2018-03-25 05:02] LABS: BASOPHILS % 0.2 % (0.0-2.0); EOSINOPHILS # 0.6 10^3/ul (0.0-0.5); EOSINOPHILS % 11.5 % (0.0-7.0); HEMATOCRIT 23.6 % (42.0-52.0); HEMOGLOBIN 7.6 g/dl (14.0-18.0); LYMPHOCYTES # 1.5 10^3/ul (0.8-2.9); LYMPHOCYTES % 30.2 % (15.0-51.0); MEAN CORPUSCULAR HGB CONC 32.2 g/dl (32.0-37.0); MEAN CORPUSCULAR VOLUME 96.3 fl (82.0-101.0); MEAN PLATELET VOLUME 9.5 fl (7.4-10.4); MONOCYTE # 0.4 10^3/ul (0.3-0.9); MONOCYTES % 8.2 % (0.0-11.0); NEUTROPHIL # 2.5 10^3/ul (1.6-7.5); NEUTROPHILS % 49.7 % (39.0-77.0); PLATELET COUNT 317 10^3/UL (140-415); RED BLOOD COUNT 2.45 10^6/ul (4.70-6.10); RED CELL DISTRIBUTION WIDTH 13.6 % (11.5-14.5)
[2018-03-25 05:25] LABS: ANION GAP 7 (5-13); BLOOD UREA NITROGEN 38 mg/dl (7-20); CARBON DIOXIDE 24 mmol/L (21-31); CHLORIDE 110 mmol/L (97-110); CREATININE 1.96 mg/dl (0.61-1.24); Estimated GFR 35 mL/min (>60); GLUCOSE 94 mg/dl (70-220); POTASSIUM 4.9 mmol/L (3.5-5.1); SODIUM 141 mmol/L (135-144)
[2018-03-25] MEDS ORDERED: HEPARIN 5,000 UNIT/0.5 ML VIAL (07:43)
[2018-03-25] MEDS: MUPIROCIN 2% 22 GM OINT TOP (08:01)
[2018-03-25] MEDS: FAMOTIDINE 20 MG TAB GTB (08:01)
[2018-03-25] MEDS: MINOXIDIL 2.5 MG TAB PO (08:02)
[2018-03-25] MEDS: traZODone 50 MG TAB PO ×2 (08:02→12:00)
[2018-03-25] MEDS: SENNA TAB PO (08:02)
[2018-03-25] MEDS: ASPIRIN 81 MG TAB GTB (08:02)
[2018-03-25] MEDS: HEPARIN SODIUM 5,000 UNIT/ML VIAL SC (08:07)
[2018-03-25] MEDS: INSULIN GLARGINE [LANTus] (100 UNITS/ML) SYG SC (08:08)
[2018-03-25] MEDS: DOXYCYCLINE 100 MG TAB PO (08:14)
[2018-03-25] MEDS: TOBRAMYCIN/0.25NS 300 MG/5 ML INHAL NEB ×2 (09:00→11:13)
[2018-03-25] MEDS: HALOPERIDOL 5 MG INJ IM (13:15)
== END 2018-03-25 16:00 | DRG 207 ==
LOC: ICU 03-03 13:41 → 6WM 02-28 01:19 → E/R 19:33
PROC: 0B21XFZ Change Tracheostomy Device in Trachea, External Approach (ICD-10-PCS; 2018-03-13 17:00)
PROC: 0BJ08ZZ Inspection of Tracheobronchial Tree, Via Natural or Artificial Opening Endoscopic (ICD-10-PCS; 2018-03-13 17:00)
PROC: 5A1955Z Respiratory Ventilation, Greater than 96 Consecutive Hours (ICD-10-PCS; principal; 2018-03-13 19:33)
PROC: 30233N1 Transfusion of Nonautologous Red Blood Cells into Peripheral Vein, Percutaneous Approach (ICD-10-PCS; 2018-03-13 19:33)
PROC: 0BJ08ZZ Inspection of Tracheobronchial Tree, Via Natural or Artificial Opening Endoscopic (ICD-10-PCS; 2018-03-13 19:33)
PROC: 0W9900Z Drainage of Right Pleural Cavity with Drainage Device, Open Approach (ICD-10-PCS; 2018-03-13 19:33)
PROC: 0BH17EZ Insertion of Endotracheal Airway into Trachea, Via Natural or Artificial Opening (ICD-10-PCS; 2018-03-13 19:33)
DX: J96.21 Acute and chronic respiratory failure with hypoxia (principal); S06.5X9A Traumatic subdural hemorrhage with loss of consciousness of unspecified duration, initial encounter; I50.33 Acute on chronic diastolic (congestive) heart failure; G92 Toxic encephalopathy; I46.9 Cardiac arrest, cause unspecified; J15.212 Pneumonia due to Methicillin resistant Staphylococcus aureus; J95.03 Malfunction of tracheostomy stoma; T17.590A Other foreign object in bronchus causing asphyxiation, initial encounter; I13.0 Hypertensive heart and chronic kidney disease with heart failure and stage 1 through stage 4 chronic kidney disease, or unspecified chronic kidney disease; I69.354 Hemiplegia and hemiparesis following cerebral infarction affecting left non-dominant side; G93.49 Other encephalopathy; J93.9 Pneumothorax, unspecified; R65.10 Systemic inflammatory response syndrome (SIRS) of non-infectious origin without acute organ dysfunction; N39.0 Urinary tract infection, site not specified; I12.9 Hypertensive chronic kidney disease with stage 1 through stage 4 chronic kidney disease, or unspecified chronic kidney disease; Z93.0 Tracheostomy status; R45.1 Restlessness and agitation; N18.3 Chronic kidney disease, stage 3 (moderate); Z93.1 Gastrostomy status; Z86.718 Personal history of other venous thrombosis and embolism; R40.2422 Glasgow coma scale score 9-12, at arrival to emergency department; Z78.1 Physical restraint status; N40.0 Benign prostatic hyperplasia without lower urinary tract symptoms; B95.62 Methicillin resistant Staphylococcus aureus infection as the cause of diseases classified elsewhere; B96.1 Klebsiella pneumoniae [K. pneumoniae] as the cause of diseases classified elsewhere; B96.20 Unspecified Escherichia coli [E. coli] as the cause of diseases classified elsewhere; B96.5 Pseudomonas (aeruginosa) (mallei) (pseudomallei) as the cause of diseases classified elsewhere; Z16.12 Extended spectrum beta lactamase (ESBL) resistance
CPT/HCPCS: 31500; 36415; 36430; 36600; 71045; 71250; 76775; 80048; 80053; 80061; 81001; 81003; 82570; 82728; 82803; 82962; 83036; 83540; 83605; 83735; 83880; 83930; 83935; 84100; 84145; 84300; 84443; 84484; 85025; 85378; 85651; 86850; 86900; 86901; 86920; 87040; 87070; 87081; 87086; 93005; 93306; 93970; 94002; 94003; 94640; 94664; 94770; 96374; 99285-25